=== PATIENT | male | born 1950 | race Caucasian/White ===

== ENCOUNTER → 2017-03-23 | Outpatient (CLI) | payer OTHER | LOC: CIMAGING 09:31 | PROVIDERS: ATTEND Family Medicine | DX: M51.36 Other intervertebral disc degeneration, lumbar region (principal); M89.38 Hypertrophy of bone, other site; Z95.828 Presence of other vascular implants and grafts | CPT/HCPCS: 72100-PO ==

== ENCOUNTER 2017-05-24 09:07 | Day surgery (SDC) | payer OTHER ==
--- NOTE | 2017-05-23 18:02 | GHP ---
[f rep st] PREOP HISTORY AND PHYSICAL DATE OF ADMISSION: 05/24/2017 The patient is a 66-year-old male with known hypertension, type 2 diabetes and coronary artery diseas e, who comes in to see Dr. Masterson to discuss arteriovenous fistula creation for initiation of dialysis . He is right-hand dominant. He is not yet on dialysis. PAST SURGICAL HISTORY: Includes AAA repair in 2012, coronary artery disease stent in 2004, lithotrip sy in the , also abdominal hernia repair, tonsillectomy, right and left arm fracture repairs, pe ricardial stripping and abdominal aneurysm. PAST MEDICAL HISTORY: Includes chronic kidney disease, type 2 diabetes, proteinuria, dyslipidemia, c oronary artery disease, gastroesophageal reflux disease, nephrolithiasis, hypertension, myocardial in farction. FAMILY MEDICAL HISTORY: Includes mother, hypertension and cancer. Father heart disease and diabetes . Sister with diabetes. SOCIAL HISTORY: The patient is a current tobacco smoker he smokes 6-10 cigarettes a day. ALLERGIES: No known drug allergies. MEDICATIONS: Include Levemir, fenofibrate, Nexium, NovoLog, aspirin, lovastatin, glipizide, amlodipi ne, metoprolol, multivitamin, lisinopril, furosemide, vitamin D3. REVIEW OF SYSTEMS: The patient reports no positives. PHYSICAL EXAMINATION: GENERAL: Reveals a 66-year-old male, alert and oriented x3 and in no acute di stress. HEENT: Normocephalic atraumatic. CHEST: Clear to auscultation bilaterally. CARDIAC: Reg ular rate and rhythm. ABDOMEN: Soft nontender. EXTREMITIES: Warm with palpable radial pulses. Ultrasound examination per Dr. Masterson in the office. ASSESSMENT AND PLAN: The patient is a 66-year-old male with multiple comorbidities including renal d isease with plans for dialysis in the near future. PLAN: Plan is to proceed with a left upper extremity arteriovenous fistula creation. Risks and opti ons have been discussed and include, but not limited to bleeding, infection, nerve injury, steal synd mckinley, failure to mature, need for revision and/or alternate access and other problems, and he request s to proceed. /[id number]/MODL
[2017-05-24] MEDS ORDERED: ceFAZolin 2 GM/SWFI 2 GM/20 ML SYR IVP ONE (09:19)
[2017-05-24] MEDS ORDERED: LR 1,000 ML IV ONE (09:21)
[2017-05-24] MEDS ORDERED: LIDOCAINE 1% 2 ML INJ ID PRN (09:21)
[2017-05-24 10:01] LABS: PLATELET COUNT 157 10^3/uL (150-400)
[2017-05-24] MEDS ORDERED: NS 500 ML IV ONE (10:03)
[2017-05-24] MEDS ORDERED: PROTAMINE SULFATE 50 MG/5 ML VIAL IVP ONE (10:30)
[2017-05-24] MEDS ORDERED: THROMBIN (BOVINE) 20,000 UNIT VIAL TP ONE (10:30)
[2017-05-24] MEDS ORDERED: THROMBIN (BOVINE) 5,000 UNIT VIAL TP ONE (10:30)
[2017-05-24] MEDS ORDERED: BUPIVACAINE 0.5% 30 ML SDV ONE (10:30)
[2017-05-24] MEDS ORDERED: PAPAVERINE HCL 60 MG/2 ML SDV ONE (10:31)
[2017-05-24] MEDS ORDERED: MIDAZOLAM 2 MG/2 ML VIAL ONE (10:35)
[2017-05-24] MEDS ORDERED: fentaNYL 100 MCG/2 ML INJ ONE (10:36)
[2017-05-24] MEDS ORDERED: PROPOFOL 200 MG/20 ML VIAL ONE (10:36)
[2017-05-24] MEDS ORDERED: LIDOCAINE 2% 5 ML SDV ONE (10:37)
--- NOTE | 2017-05-24 10:37 | PDHPUP ---
History & Physical Update H&P update statement: This history and physical update is based on an assessment of the patient which was completed after admission or registration (within 24 hours), but prior to the surgery/procedure. H&P update: H&P reviewed & patient examined, no change in patient's condition since H&P completed
[2017-05-24] MEDS ORDERED: MIDAZOLAM 2 MG/2 ML VIAL IVP ONE ×2 (10:42→12:03)
--- NOTE | 2017-05-24 10:44 | PDANEPAE ---
ANE History of Present Illness AV fistula left arm ANE Past Medical History - Cardiovascular History Hx Hypertension: Yes Hx Arrhythmias: No Hx Chest Pain: No Hx Coronary Artery / Peripheral Vascular Disease: Yes Hx CHF / Valvular Disease: No Hx Palpitations: No Cardiovascular History Comment: Trig Rx - Pulmonary History Hx COPD: No Hx Asthma/Reactive Airway Disease: No Hx Recent Upper Respiratory Infection: No Hx Oxygen in Use at Home: No Hx Sleep Apnea: Yes Sleep Apnea Screening Result - Last Documented: Positive Pulmonary History Comment: smoker x 50yrs. APOLINAR- cannot sasha CPAP. 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 hiatal hernia repair. Abdominal aortic aneurysm. coronary stent. tonsillectomy age 9 ANE Review of Systems Review of Systems: - Exercise capacity METS (RN): 4 METS ANE Patient History - Allergies Allergies/Adverse Reactions: No Known Allergies Allergy (Unverified 05/23/17 12:43) - Home Medications Home medications: home medication list seen and reviewed Home Medications: Amlodipine Besylate 05/23/17 [Last Taken 05/24/17 07:30] Aspirin 81mg (*) 05/23/17 [Last Taken 05/23/17] FENOFIBRATE 05/23/17 [Last Taken 05/23/17] Furosemide 05/23/17 [Last Taken 05/23/17] Glipizide 05/23/17 [Last Taken 05/23/17] Levemir Flextouch 05/23/17 [Last Taken 05/23/17] Lisinopril 05/23/17 [Last Taken 05/24/17 07:30] Lovastatin 05/23/17 [Last Taken 05/23/17] Metoprolol Tartrate 05/23/17 [Last Taken 05/24/17 07:30] Nexium 05/23/17 [Last Taken 05/24/17 07:30] novoLOG 05/23/17 [Last Taken 05/23/17] - NPO status NPO Since - Liquids (Date): 05/24/17 NPO Since - Liquids (Time): 07:30 NPO Since - Solids (Date): 05/23/17 NPO Since - Solids (Time): 20:30 - Smoking Hx Smoking Status: Heavy smoker ANE Labs/Vital Signs - Labs Result Diagrams: 05/24/17 09:55 05/24/17 09:55 - Vital Signs Blood Pressure: 168/83 Heart Rate: 86 Respiratory Rate: 16 O2 Sat (%): 97 Height: 182.88 cm Weight: 83.915 kg ANE Physical Exam - Airway Neck exam: FROM Mallampati Score: Class 2 Mouth exam: normal dental/mouth exam - Pulmonary Pulmonary: no respiratory distress - Cardiovascular Cardiovascular: regular rate and rhythym - ASA Status ASA Status: IV ANE Anesthesia Plan Anesthesia Plan: GA w LMA Urgent/Emergent Case: Chelsey sanchez completed preop but documented later for safe timely pt care
[2017-05-24] MEDS ORDERED: PHENYLEPHRINE HCL 100 MCG/ML SYR ONE (10:52)
--- NOTE | 2017-05-24 10:58 | POSTANESTH ---
Post Anesthetic Evaluation Cardiovascular Status: Normal, Stable Respiratory Status: Normal, Stable Level of Consciousness/Mental Status: Can Participate in Eval Pain Control: Adequate, Prn Tx Ordered Nausea/Vomiting Control: Adequate, Prn Tx Ordered Complications Possibly Related to Anesthesia: None Noted
[2017-05-24] MEDS ORDERED: PROMETHAZINE HCL 25 MG/ML INJ IVP PRN (11:36)
[2017-05-24] MEDS ORDERED: ONDANSETRON 4 MG/2 ML VIAL IVP PRN (11:36)
[2017-05-24] MEDS ORDERED: oxyCODONE IR 5 MG TAB PO PRN (11:36)
[2017-05-24] MEDS ORDERED: ONDANSETRON 4 MG/2 ML VIAL ONE (11:36)
[2017-05-24] MEDS ORDERED: NS 500 ML IV PRN (11:36)
[2017-05-24] MEDS ORDERED: ALBUTEROL 3 ML DEYVIAL IH PRN (11:36)
[2017-05-24] MEDS ORDERED: NALOXONE HCL 0.4 MG/ML INJ IVP PRN (11:36)
[2017-05-24] MEDS ORDERED: fentaNYL 100 MCG/2 ML INJ IVP PRN (11:36)
[2017-05-24] MEDS ORDERED: HYDROmorphONE/DILAUDID 1 MG/ML INJ IVP PRN (11:36)
[2017-05-24] MEDS ORDERED: ACETAMINOPHEN 500 MG TAB PO PRN (11:36)
[2017-05-24] MEDS ORDERED: HYDROCODONE/APAP 5/325 TAB PO PRN (11:36)
--- NOTE | 2017-05-24 12:55 | GOP ---
[f rep st] OPERATIVE REPORT DATE OF OPERATION: 05/24/2017 SURGEON: Bishnu Masterson MD TRANSMISSION SUPERINTENDENT: VIVIAN Dick. ANESTHESIOLOGIST: Jean Campbell MD. PREOPERATIVE DIAGNOSIS: Chronic renal failure. POSTOPERATIVE DIAGNOSIS: Chronic renal failure. PROCEDURE PERFORMED: 1. Left arm venous ultrasound vein mapping. 2. Left radiocephalic arteriovenous fistula. FINDINGS: Patient was found to have an adequate radial artery and a good cephalic vein at the wrist, as well as in the upper arm. It was elected to proceed with a radiocephalic AV fistula. ESTIMATED BLOOD LOSS: Negligible. DESCRIPTION OF PROCEDURE: The patient was taken to the operating room. He received satisfactory gen eral endotracheal anesthesia by Dr. Campbell, placed in supine position with the left arm outstretche d on an arm board, prepped and draped in the usual sterile fashion. The veins were mapped with the u ltrasound with the above-noted findings. A longitudinal incision was made over the radial artery. D issection carried down through the fascia and the radial artery was dissected free and controlled wit h vessel loops. The cephalic vein was dissected free underneath the radial flap. It was ligated dis tally with 3-0 silk ties and then rotated over to the radial artery. An end-to-side anastomosis was then made creating an 8 mm anastomosis. Flow was first established through the AV fistula and then b ack down the hand. The patient was systemically heparinized prior to occluding any vessels, and the heparin was reversed with protamine. The wound was instilled with some topical thrombin and closed i n layers with 3-0 Vicryl for the subcu, 4-0 Monocryl subcuticular stitch for the skin. Good palpable thrill was present in the fistula after closure of the wound. The wound was also infiltrated with 0 .5% Marcaine. He tolerated the procedure well and was taken to recovery room in good condition. COMPLICATIONS: No complications. /[id number]/MODL
[2017-05-24 13:22] VITALS: BP 102/72
== END 2017-05-24 13:31 | disposition home or self-care (01) ==
LOC: FSGY 09:07
PROVIDERS: ATTEND Surgery
PROC: 03180ZD Bypass Left Brachial Artery to Upper Arm Vein, Open Approach (ICD-10-PCS; principal; 2017-05-24 10:30)
DX: N18.4 Chronic kidney disease, stage 4 (severe) (principal); I12.9 Hypertensive chronic kidney disease with stage 1 through stage 4 chronic kidney disease, or unspecified chronic kidney disease; E11.22 Type 2 diabetes mellitus with diabetic chronic kidney disease; I25.10 Atherosclerotic heart disease of native coronary artery without angina pectoris; E78.5 Hyperlipidemia, unspecified; K21.9 Gastro-esophageal reflux disease without esophagitis; I25.2 Old myocardial infarction; F17.210 Nicotine dependence, cigarettes, uncomplicated; G47.33 Obstructive sleep apnea (adult) (pediatric); Z87.442 Personal history of urinary calculi; Z95.5 Presence of coronary angioplasty implant and graft; Z83.3 Family history of diabetes mellitus; Z82.49 Family history of ischemic heart disease and other diseases of the circulatory system; Z79.4 Long term (current) use of insulin
CPT/HCPCS: J0690; J1644; J2250; J2370; J2405; J2440; J2704; J2720; J3010

== ENCOUNTER 2017-07-19 06:28 | Day surgery (SDC) | payer OTHER ==
[2017-07-19] MEDS ORDERED: ceFAZolin 2 GM/DEXTROSE 100 ML IV ONE (06:54)
[2017-07-19] MEDS ORDERED: LIDOCAINE 1% 2 ML INJ ID PRN (07:02)
[2017-07-19] MEDS ORDERED: NS 1,000 ML IV ONE (07:02)
[2017-07-19] MEDS ORDERED: THROMBIN (BOVINE) 20,000 UNIT SPRAY TP ONE (07:03)
[2017-07-19] MEDS ORDERED: THROMBIN (BOVINE) 5,000 UNIT VIAL TP ONE (07:03)
[2017-07-19] MEDS ORDERED: PROTAMINE SULFATE 50 MG/5 ML VIAL IVP ONE (07:03)
[2017-07-19] MEDS ORDERED: BUPIVACAINE 0.5% 30 ML SDV ONE (07:03)
[2017-07-19] MEDS ORDERED: PAPAVERINE HCL 60 MG/2 ML SDV ONE (07:03)
--- NOTE | 2017-07-19 07:46 | PDANEPAE ---
ANE History of Present Illness Left ASV revision with ligation ANE Past Medical History - Cardiovascular History Hx Hypertension: Yes Hx Arrhythmias: No Hx Chest Pain: No Hx Coronary Artery / Peripheral Vascular Disease: Yes Hx CHF / Valvular Disease: No Hx Palpitations: No Cardiovascular History Comment: Trig Rx - Pulmonary History Hx COPD: No Hx Asthma/Reactive Airway Disease: No Hx Recent Upper Respiratory Infection: No Hx Oxygen in Use at Home: No Hx Sleep Apnea: Yes Sleep Apnea Screening Result - Last Documented: Positive Pulmonary History Comment: smoker x 50yrs. APOLINAR- cannot sasha CPAP. 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 open heart sx for pericardial stripping;. hiatal hernia repair. Abdominal aortic aneurysm. coronary stent. tonsillectomy age 9 ANE Review of Systems Review of Systems: - Exercise capacity METS (RN): 4 METS - Systems Constitutional: Reports: no symptoms EENMT: Reports: no symptoms ANE Patient History - Allergies Allergies/Adverse Reactions: No Known Allergies Allergy (Unverified 05/23/17 12:43) - Home Medications Home medications: home medication list seen and reviewed Home Medications: Amlodipine Besylate DAILY 05/23/17 [Last Taken 07/19/17 06:00] Aspirin 81mg (*) DAILY 05/23/17 [Last Taken 07/18/17 08:00] FENOFIBRATE HS 05/23/17 [Last Taken 07/18/17 22:00] Furosemide DAILY 05/23/17 [Last Taken 07/18/17 08:00] Glipizide BID 05/23/17 [Last Taken 07/18/17 20:30] Levemir Flextouch HS 05/23/17 [Last Taken 07/18/17 23:00 18] Lisinopril DAILY 05/23/17 [Last Taken 07/19/17 06:00] Lovastatin DAILY 05/23/17 [Last Taken 07/19/17 06:00] Metoprolol Tartrate BID 05/23/17 [Last Taken 07/19/17 06:00] Nexium DAILY 05/23/17 [Last Taken 07/19/17 06:00] novoLOG INJ PRN 05/23/17 [Last Taken 07/18/17 12:00] - NPO status NPO Since - Liquids (Date): 07/18/17 NPO Since - Liquids (Time): 21:00 NPO Since - Solids (Date): 07/18/17 NPO Since - Solids (Time): 21:00 - Anes Hx Anes Hx: no prior problems - Smoking Hx Smoking Status: Heavy smoker Marijuana use: Yes - Alcohol Use Alcohol Use: None - Family Anes Hx Family Anes Hx: none ANE Labs/Vital Signs - Vital Signs Blood Pressure: 149/75 Heart Rate: 70 Respiratory Rate: 16 O2 Sat (%): 96 Height: 182.88 cm Weight: 82.554 kg ANE Physical Exam - Airway Neck exam: decreased ROM Mallampati Score: Class 2 Mouth exam: normal dental/mouth exam - Pulmonary Pulmonary: no respiratory distress, no rales or rhonchi - Cardiovascular Cardiovascular: regular rate and rhythym, no murmur, rub, or gallop - ASA Status ASA Status: III ANE Anesthesia Plan Anesthesia Plan: GA w LMA (Proseal)
[2017-07-19] MEDS ORDERED: MIDAZOLAM 2 MG/2 ML VIAL IVP ONE (07:47)
[2017-07-19] MEDS ORDERED: LIDOCAINE 2% 5 ML SDV ONE (08:09)
[2017-07-19] MEDS ORDERED: PROPOFOL/EMULSION 500 MG/50 ML BOTTLE IV ONE (08:09)
[2017-07-19] MEDS ORDERED: fentaNYL 100 MCG/2 ML INJ ONE (08:09)
[2017-07-19] MEDS ORDERED: ONDANSETRON 4 MG/2 ML VIAL ONE (08:10)
[2017-07-19] MEDS ORDERED: DEXAMETHASONE 4 MG/ML VIAL ONE (08:10)
[2017-07-19] MEDS ORDERED: GLYCOPYRROLATE 0.2 MG/1 ML VIAL ONE (08:10)
[2017-07-19] MEDS ORDERED: PHENYLEPHRINE HCL 100 MCG/ML SYR ONE (09:04)
--- NOTE | 2017-07-19 09:05 | POSTOPPROG ---
Post Op Note Date of Operation: 07/19/17 Surgeon: Bishnu Masterson Audio Visual Secretary: Romana Peters Anesthesiologist: Denise Schmid Anesthesia: LMA Pre-op Diagnosis: CRI, inadequate AVF maturation Post-op Diagnosis: same Procedure: Revision of LUE radiocephalic AVF c ligation of venous collaterals x 3. Findings: 3 collateral veins Inf/Abcess present in the surg proc area at time of surgery?: No EBL: Minimal Complications: none
[2017-07-19] MEDS ORDERED: HYDROCODONE/APAP 5/325 TAB PO PRN (09:19)
[2017-07-19] MEDS ORDERED: ACETAMINOPHEN 500 MG TAB PO PRN (09:19)
[2017-07-19] MEDS ORDERED: NALOXONE HCL 0.4 MG/ML INJ IVP PRN (09:19)
[2017-07-19] MEDS ORDERED: ONDANSETRON 4 MG/2 ML VIAL IVP PRN (09:19)
[2017-07-19] MEDS ORDERED: fentaNYL 100 MCG/2 ML INJ IVP PRN (09:19)
[2017-07-19] MEDS ORDERED: oxyCODONE IR 5 MG TAB PO PRN (09:19)
--- NOTE | 2017-07-19 09:21 | POSTANESTH ---
Post Anesthetic Evaluation Cardiovascular Status: Normal, Stable Respiratory Status: Normal, Stable Level of Consciousness/Mental Status: Can Participate in Eval Pain Control: Adequate, Prn Tx Ordered Nausea/Vomiting Control: Adequate, Prn Tx Ordered Complications Possibly Related to Anesthesia: None Noted (Pt awake. Pt commented that surgery easier than IV placement)
[2017-07-19 10:20] VITALS: BP 130/59
--- NOTE | 2017-07-23 20:43 | GOP ---
[f rep st] OPERATIVE REPORT DATE OF OPERATION: 07/19/2017 SURGEON: Bishnu Masterson MD PREOPERATIVE DIAGNOSIS: Chronic renal failure and arteriovenous fistula with collaterals. POSTOPERATIVE DIAGNOSIS: Chronic renal failure and arteriovenous fistula with collaterals. PROCEDURE PERFORMED: Ultrasound vein mapping of the left arm with revision of the left upper extremi ty radiocephalic arteriovenous fistula with ligation of multiple venous collaterals. FINDINGS: Patient was found to have 3 moderate-size collaterals which were stealing blood away from the main fistula tract. Ligation of these did seem to result in a higher flow rate to the AV fistula . DESCRIPTION OF PROCEDURE: The patient was taken to the operating room where he received satisfactory general endotracheal anesthesia by Dr. Schmid, placed in a supine position with the left arm outstre tched on an arm board, prepped and draped in the usual sterile fashion. The veins of the arm were ev aluated with an ultrasound, and 3 large tributaries were marked. These could also be palpated with a palpable thrill in these collateral veins. Three incisions were made over each of these separate co llaterals, and the veins were dissected free through the subcutaneous tissue and ligated with 3-0 erick k ties. As noted above the flow through the fistula was maintained and, in fact, improved. All 3 in cisions were handled in a similar way. They were infiltrated with 0.5% Marcaine and then closed with 4-0 Monocryl subcuticular sutures. He tolerated the procedure well. He was taken to the recovery r oom in good condition. There were no complications. /[id number]/MODL
== END 2017-07-19 10:20 | disposition home or self-care (01) ==
LOC: FSGY 06:28
PROVIDERS: ATTEND Surgery
PROC: 05LY0ZZ Occlusion of Upper Vein, Open Approach (ICD-10-PCS; principal; 2017-07-19 08:00)
DX: T82.898A Other specified complication of vascular prosthetic devices, implants and grafts, initial encounter (principal); N18.6 End stage renal disease; I12.0 Hypertensive chronic kidney disease with stage 5 chronic kidney disease or end stage renal disease; E11.22 Type 2 diabetes mellitus with diabetic chronic kidney disease; I25.2 Old myocardial infarction; I71.4 Abdominal aortic aneurysm, without rupture; F17.210 Nicotine dependence, cigarettes, uncomplicated; G47.33 Obstructive sleep apnea (adult) (pediatric); K21.9 Gastro-esophageal reflux disease without esophagitis; Z79.4 Long term (current) use of insulin; Z79.82 Long term (current) use of aspirin; Z82.3 Family history of stroke; Z80.42 Family history of malignant neoplasm of prostate; Z83.3 Family history of diabetes mellitus; Z82.49 Family history of ischemic heart disease and other diseases of the circulatory system; Z95.5 Presence of coronary angioplasty implant and graft; Z95.828 Presence of other vascular implants and grafts
CPT/HCPCS: J0690; J1100; J1644; J2250; J2370; J2405; J2440; J2704; J2720; J3010

== ENCOUNTER 2017-10-21 15:00 | Inpatient (IN) | payer OTHER ==
--- NOTE | 2017-10-21 15:23 | EDPHY ---
HPI/HX/ROS/PE/MDM Narrative: CHIEF COMPLAINT: Chest tightness HISTORY OF PRESENT ILLNESS: The patient is a 67 y/o male with a history type 2 diabetes, AAA requiring 3 abdominal stents, CAD, 1 cardiac stent (was on Plavix), hypertension, and chronic kidney disease complaining of chest tightness, onset 2 days ago. On Tuesday he went on a short walk and subsequently developed chest pain associated with uncontrollable shaking in his arms that lasted for 30-45 minutes. Per his son, the patient's blood glucose level was 500 at this time. It is not abnormal for the patient to have shaking in his arms when his BGL spikes. Today at around 2:00, 1.5 hours ago, the patient developed the chest tightness associated with the uncontrollable arm shaking again. However, the pain then radiated to his left ribs, which concerned him. At this time his BGL was 286 and the chest pain was a 4/10. During the most recent episode of chest pain he was short of breath and nauseous, but denies vomiting. Taking a deep breath does not aggravate his symptoms. He currently does not have any symptoms including chest pain or shortness of breath. He denies history of COPD, emphysema or asthma although he is a smoker. He denies changing his medications recently. However, per his family, the patient does not stick to a schedule for administering himself his diabetes medications. No fever, chills, palpitations, vomiting, diarrhea, urinary complaints, headache , lightheadedness, recent cold symptoms. REVIEW OF SYSTEMS: Aside from elements discussed in the HPI, a comprehensive 10 system review of systems was reviewed and is negative. PAST MEDICAL HISTORY: Type 2 diabetes, AAA requiring 3 abdominal stents, CAD, 1 cardiac stent, hypertension, chronic kidney disease SOCIAL HISTORY: Family at bedside, lives in [place], retired, followed by Dr. Martin, smoker VITAL SIGNS: Reviewed by me GENERAL: Well-developed, well-nourished, resting comfortably in no respiratory distress. HEENT: Atraumatic. Eyes: No icterus, no injection. Mouth: dry mucous membranes. No erythema or lesions. Neck: supple with no adenopathy. LUNGS: Mildly diminished breath sounds. Clear to auscultation bilaterally, no wheezes, rhonchi or rales. CARDIAC: Regular rate and rhythm, no rubs, murmurs or gallops. ABDOMEN: Protuberant abdomen. Soft, nontender, nondistended, bowel sounds normal. BACK: No CVA tenderness. EXTREMITIES: No trauma. No edema. Range of motion is normal throughout. NEURO: Alert and oriented, grossly nonfocal. SKIN: Warm and dry, no rash. PSYCHIATRIC: Normal mentation, no agitation. Portions of this note were transcribed by a chief medical technologist. I personally performed a history, physical exam, medical decision making, and confirmed accuracy of information the transcribed note. ED Course: The patient is a 67 y/o male with a history type 2 diabetes, AAA requiring 3 abdominal stents, CAD, 1 cardiac stent (was on Plavix), hypertension, and chronic kidney disease presenting with intermittent chest tightness associated with uncontrollable shaking of his arms, onset 2 days ago. Today he developed the chest tightness again but the pain radiated to his left side. On exam he has dry mucous membranes, diminished breath sounds, and a protuberant abdomen. Labs, EKG, and chest x-ray ordered; 500mL IV NS administered. 1522: 12-LEAD EKG: Please see the full report in [facility]. My interpretation: Sinus rhythm with a rate of 82, RBBB, LAFB, ST depression in V2. I am unable to compare this to an old EKG as this patient is new to [place]. 1538: Patient's POC troponin is 0.06; his chest x-ray reveals no acute findings 1619: Patient's laboratory troponin is 0.078; he will need to be admitted for his symptoms and positive troponin. 324mg PO Aspirin given. 1611: I consulted with the hospitalist service, Dr. Allred accepts admission of this patient. 1615: Reassessed patient and discussed laboratory and EKG findings. I have discussed the plan for admission, which he is comfortable with. 1637: I consulted with Dr. Gallardo, software qa system specialist, regarding this patient. He agrees to consult on this patient during his admission. MDM: After history and physical examination, the differential for chest pain was considered, including but not limited to, myocardial ischemia, acute coronary syndrome, pulmonary embolus, chest wall pain, pleural inflammation and pulmonary infectious causes. - Data Points Imaging Results: Imaging Impressions Chest X-Ray 10/21/17 15:37 Impression: No acute findings in the chest. Imaging: I viewed and interpreted images myself Laboratory Results: Laboratory Results 10/21/17 15:15 10/21/17 15:15 10/21/17 10/21/17 10/21/17 15:50 15:24 15:15 WBC RBC Hgb Hct MCV MCH MCHC RDW Plt Count MPV Neut % (Auto) Lymph % (Auto) [place] % (Auto) Eos % (Auto) Baso % (Auto) Nucleat RBC Rel Count Absolute Neuts (auto) Absolute Lymphs (auto) Absolute Monos (auto) Absolute Eos (auto) Absolute Basos (auto) Absolute Nucleated RBC Immature Gran % Immature Gran # Sodium 137 mEq/L mEq/L (135-145) Potassium 4.4 mEq/L mEq/L (3.3-5.0) Chloride 101 mEq/L mEq/L (97-110) Carbon Dioxide 25 mEq/l mEq/l (22-31) Anion Gap 11 mEq/L mEq/L (8-16) BUN 45 mg/dL H mg/dL (7-23) Creatinine 2.7 mg/dL H mg/dL (0.7-1.3) Estimated GFR 24 Glucose 246 mg/dL H mg/dL (70-100) Calcium 9.5 mg/dL mg/dL (8.5-10.4) Creatine Kinase 46 IU/L IU/L (0-224) CK-MB (CK-2) Fraction 1.43 ng/mL ng/mL (0.00-4.55) POC Troponin I 0.06 ng/mL ng/mL (0.00-0.08) Troponin I 0.078 ng/mL H ng/mL (0.000-0.034) Lipase 107 IU/L IU/L (23-300) Urine Color YELLOW Urine Appearance CLEAR Urine pH 5.0 (5.0-7.5) Ur Specific [place] 1.014 (1.002-1.030) Urine Protein 3+ H (NEGATIVE) Urine Ketones NEGATIVE (NEGATIVE) Urine Blood 1+ H (NEGATIVE) Urine Nitrate NEGATIVE (NEGATIVE) Urine Bilirubin NEGATIVE (NEGATIVE) Urine Urobilinogen NEGATIVE EU EU (0.2-1.0) Ur Leukocyte Esterase NEGATIVE (NEGATIVE) Urine RBC 1-3 /hpf /hpf (0-3) Urine WBC 1-3 /hpf /hpf (0-3) Ur Epithelial Cells NONE SEEN /lpf /lpf (NONE-1+) Urine Glucose 3+ H (NEGATIVE) 10/21/17 15:15 WBC 11.33 10^3/uL H 10^3/uL (3.80-9.50) RBC 5.16 10^6/uL 10^6/uL (4.40-6.38) Hgb 16.0 g/dL g/dL (13.7-17.5) Hct 46.5 % % (40.0-51.0) MCV 90.1 fL fL (81.5-99.8) MCH 31.0 pg pg (27.9-34.1) MCHC 34.4 g/dL g/dL (32.4-36.7) RDW 13.2 % % (11.5-15.2) Plt Count 147 10^3/uL L 10^3/uL (150-400) MPV 12.4 fL H fL (8.7-11.7) Neut % (Auto) 69.1 % % (39.3-74.2) Lymph % (Auto) 17.6 % % (15.0-45.0) [place] % (Auto) 8.4 % % (4.5-13.0) Eos % (Auto) 3.3 % % (0.6-7.6) Baso % (Auto) 0.6 % % (0.3-1.7) Nucleat RBC Rel Count 0.0 % % (0.0-0.2) Absolute Neuts (auto) 7.84 10^3/uL H 10^3/uL (1.70-6.50) Absolute Lymphs (auto) 1.99 10^3/uL 10^3/uL (1.00-3.00) Absolute Monos (auto) 0.95 10^3/uL H 10^3/uL (0.30-0.80) Absolute Eos (auto) 0.37 10^3/uL 10^3/uL (0.03-0.40) Absolute Basos (auto) 0.07 10^3/uL 10^3/uL (0.02-0.10) Absolute Nucleated RBC 0.00 10^3/uL 10^3/uL (0-0.01) Immature Gran % 1.0 % % (0.0-1.1) Immature Gran # 0.11 10^3/uL H 10^3/uL (0.00-0.10) Sodium Potassium Chloride Carbon Dioxide Anion Gap BUN Creatinine Estimated GFR Glucose Calcium Creatine Kinase CK-MB (CK-2) Fraction POC Troponin I Troponin I Lipase Urine Color Urine Appearance Urine pH Ur Specific [place] Urine Protein Urine Ketones Urine Blood Urine Nitrate Urine Bilirubin Urine Urobilinogen Ur Leukocyte Esterase Urine RBC Urine WBC Ur Epithelial Cells Urine Glucose Medications Given: Discontinued Medications Aspirin (Aspirin) 324 mg PO EDNOW ONE Stop: 10/21/17 16:14 Last Admin: 10/21/17 16:17 Dose: 324 mg Sodium Chloride (Ns) 500 mls @ 1,000 mls/hr IV EDNOW ONE PRN Reason: Protocol Stop: 10/21/17 16:31 Last Admin: 10/21/17 16:17 Dose: 500 mls Point of Care Test Results: Chemistry 10/21/17 15:24 POC Troponin I 0.06 ng/mL ng/mL (0.00-0.08) General Time Seen by Provider: 10/21/17 15:19 Initial Vital Signs: Initial Vital Signs Temperature (C) 36.7 C 10/21/17 15:07 Heart Rate 90 10/21/17 15:07 Respiratory Rate 16 10/21/17 15:07 Blood Pressure 157/93 H 10/21/17 15:07 O2 Sat (%) 97 10/21/17 15:07 O2 Delivery Mode Room Air O2 (L/minute) 2 Allergies/Adverse Reactions: No Known Allergies Allergy (Unverified 10/21/17 15:05) Home Medications: Medication Instructions Recorded Aspirin [Aspirin 81mg (*)] 81 mg PO DAILY 10/21/17 Cholecalciferol Vit D3 [Vitamin D3 2,000 units PO DAILY 10/21/17 2000 units tab (OTC)] Esomeprazole Magnesium [Nexium] 20 mg PO DAILY 10/21/17 Fenofibrate 54 mg PO HS 10/21/17 Insulin Aspart [novoLOG] 4 - 10 units SQ TIDMEAL 10/21/17 Insulin Detemir [Levemir Flextouch] 28 unit SQ HS 10/21/17 Metoprolol Tartrate [Lopressor 25 12.5 mg PO BID 10/21/17 mg (*)] amLODIPine BESYLATE [Amlodipine 10 mg PO DAILY 10/21/17 Besylate] glipiZIDE [Glipizide] 10 mg PO BID 10/21/17 Atorvastatin Calcium [Lipitor 40 80 mg PO DAILY #60 tab 10/25/17 mg (*)] Clopidogrel Bisulfate [Plavix (*)] 75 mg PO DAILY #30 tab 10/25/17 Departure - Departure Disposition: [facility] Acute Clinical Impression: Elevated troponin Condition: Fair Report Scribed for: Marge Lopez Report Scribed by: Bhavna Church Date of Report: 10/21/17 Time of Report: 15:21
[2017-10-21 15:44] LABS: PLATELET COUNT 147 10^3/uL (150-400)
[2017-10-21 15:54] LABS: CREATINE KINASE 46 IU/L (0-224)
[2017-10-21] MEDS ORDERED: NS 500 ML IV ONE (16:02)
[2017-10-21] MEDS ORDERED: ASPIRIN 81 MG CHEWABLE TAB PO ONE (16:13)
--- NOTE | 2017-10-21 17:02 | ECHO ---
[email or web address] [address] [address] Main: [phone] Fax: Transthoracic Echocardiogram Name: TANIA THOMAS MR#: [id number] Study Date: 10/21/2017 Study Time: 04:35 PM Date of : 1950 Age: 67 year(s) Height: 180.3 cm (71 in.) Weight: 84.37 kg (186 lb.) BSA: 2.04 m2 Gender: Male Examination: Echo Indication: Chest Pain, Elevated Troponin, Hx of Pericardial stripping, stents, Diabetes Image Quality: Contrast: Requested by: Nabil Allred BP: 152 mmHg/88 mmHg Heart Rate: Rhythm: Normal sinus rhythm Indication: Chest Pain, Elevated Troponin, Hx of Pericardial stripping, stents, Diabetes Procedure Staff Mold Runner: Keny Pedraza RDCS Reading Physician: Will Ann MD Requesting Provider: Conclusions: No pericardial effusion. Preserved left ventricular systolic function. No regional wall motion abnormalities. Ejection fraction 65%. No significant valvular abnormalities by Doppler 2 dimensional study. Measurements: Chambers Valvular Assessment AV/MV Valvular Assessment TV/PV Normal Normal Normal Name Value Range Name Value Range Name Value Range Ao Sherrie (MM): 3.6 cm (2.2 cm-3.7 AV Vmax: 1.28 m/s (1 m/s-1.7 PV Vmax: 0.73 m/s (0.6 m/s-0.9 cm) m/s) m/s) IVSd (2D): 1.0 cm (0.6 cm-1.1 AV maxP mmHg ( - ) PV PGmax: 2 mmHg ( - ) cm) LVOT Vmax: 0.72 m/s (0.7 m/s-1.1 LVDd (2D): 4.1 cm (4.2 cm-5.9 m/s) cm) MV E Vmax: 0.79 m/s ( - ) LVDs (2D): 2.7 cm (2.1 cm-4 MV A Vmax: 0.96 m/s ( - ) cm) MV E/A: 0.82 ( - ) LVPWd (2D): 1.0 cm (0.6 cm-1 cm) LVEF (2D): 65 (>=54 %) Continued Measurements: Chambers Valvular Assessment AV/MV Name Value Name Value LADs Lon.7 cm MV E/E' Septal: 18.90 LA Area: 14.6 cm2 MV E/E' Lateral: 9.50 LA Volume: 41 ml LA Volume Index: 20.1 ml/m2 Patient: TANIA THOMAS Study Date: 10/21/2017 Page 1 of 2 04:35 PM Findings: Left Ventricle: Normal size left ventricle. No LV hypertrophy. Normal global systolic LV function. EF is 65 %. No regional wall motion abnormality. Diastolic dysfunction is present. . Right Ventricle: Normal size right ventricle. Normal RV function. Left Atrium: The left atrium is normal in size. Right Atrium: The right atrium is normal in size. Mitral Valve: The mitral valve is normal in appearance and function. Trivial mitral valve regurgitation. Aortic Valve: The aortic valve is tri-leaflet and functions normally. No aortic valve stenosis is present. Tricuspid Valve: The tricuspid valve is normal in appearance and function. Pulmonic Valve: The pulmonic valve is normal in appearance and function. Aorta: The aorta is normal. Pericardium: No pericardial effusion. (No Signature Object) Patient: TANIA THOMAS Study Date: 10/21/2017 Page 2 of 2 04:35 PM [id number]
[2017-10-21] MEDS ORDERED: D50W 25 GM/50 ML VIAL IVP PRN (18:36)
[2017-10-21] MEDS ORDERED: ACETAMINOPHEN 325 MG TAB PO PRN (18:40)
[2017-10-21] MEDS ORDERED: ONDANSETRON DISINTEGRATING 4 MG TAB PO PRN (18:40)
[2017-10-21] MEDS ORDERED: ONDANSETRON 4 MG/2 ML VIAL IVP PRN (18:40)
--- NOTE | 2017-10-21 18:45 | PDGENHP ---
History and Physical - Chief Complaint chest pain - History of Present Illness The patient is a 67 y/o male with a history type 2 diabetes, AAA requiring 3 abdominal stents, CAD, 1 cardiac stent (was on Plavix), hypertension, and chronic kidney disease complaining of chest tightness, onset 2 days ago. On Tuesday he went on a short walk and subsequently developed chest pain associated with uncontrollable shaking in his arms that lasted for 30-45 minutes. Today at around 2:00, 1.5 hours ago, the patient developed the chest tightness associated with the uncontrollable arm shaking again. However, the pain then radiated to his left ribs, which concerned him. At this time his BGL was 286 and the chest pain was a 4/10. Taking a deep breath does not aggravate his symptoms. He currently does not have any symptoms including chest pain or shortness of breath. He denies history of COPD, emphysema or asthma although he is a smoker. He is currently not having any chest pain. He has a hx of chronic renal insufficiency stage IV and recently had a AV fistula placed. He has not started dialysis. He is urinating well. Electrolytes are ok. Cr is elevated but appears within his baseline. He denies any current cp , palpitations or leg swelling. 1 of 2 trop was mildly elevated. No fever, chills, palpitations, vomiting, diarrhea, urinary complaints, headache , lightheadedness, recent cold symptoms. PAST MEDICAL HISTORY: Type 2 diabetes, AAA requiring 3 abdominal stents, CAD, 1 cardiac stent, hypertension, chronic kidney disease SOCIAL HISTORY: Family at bedside, lives in [place], retired, followed by Dr. Martin, smoker FmHx: non contributory History Information - Allergies/Home Medication List Allergies/Adverse Reactions: No Known Allergies Allergy (Unverified 10/21/17 15:05) Home Medications: Amlodipine Besylate DAILY 05/23/17 [Last Taken 07/19/17 06:00] Aspirin 81mg (*) DAILY 05/23/17 [Last Taken 07/18/17 08:00] FENOFIBRATE HS 05/23/17 [Last Taken 07/18/17 22:00] Furosemide DAILY 05/23/17 [Last Taken 07/18/17 08:00] Glipizide BID 05/23/17 [Last Taken 07/18/17 20:30] Levemir Flextouch HS 05/23/17 [Last Taken 07/18/17 23:00 18] Lisinopril DAILY 05/23/17 [Last Taken 07/19/17 06:00] Lovastatin DAILY 05/23/17 [Last Taken 07/19/17 06:00] Metoprolol Tartrate BID 05/23/17 [Last Taken 07/19/17 06:00] Nexium DAILY 05/23/17 [Last Taken 07/19/17 06:00] novoLOG INJ PRN 05/23/17 [Last Taken 07/18/17 12:00] Vitamin D3 10/21/17 [Last Taken Unknown] I have personally reviewed and updated: medical history, social history - Social History Smoking Status: Current every day smoker Review of Systems Review of Systems: ROS: 10pt was reviewed & negative except for what was stated in HPI & below Physical Exam Physical Exam: Temp Pulse Resp BP Pulse Ox 36.7 C 90 16 164/95 H 99 10/21/17 17:52 10/21/17 17:52 10/21/17 17:52 10/21/17 17:52 10/21/17 17:52 O2 (L/minute) 2 Constitutional: no apparent distress, appears nourished Eyes: PERRL Ears, Nose, Mouth, Throat: moist mucous membranes Cardiovascular: regular rate and rhythym, No edema Respiratory: no respiratory distress, no rales or rhonchi, reduced air movement Gastrointestinal: normoactive bowel sounds Skin: warm Musculoskeletal: full muscle strength Neurologic: AAOx3 Psychiatric: interacting appropriately, not anxious, not encephalopathic Lymph, Heme, Immunologic: No petechiae Lab Data & Imaging Review 10/21/17 15:15 10/21/17 15:15 WBC 11.33 10^3/uL (3.80-9.50) H 10/21/17 15:15 RBC 5.16 10^6/uL (4.40-6.38) 10/21/17 15:15 Hgb 16.0 g/dL (13.7-17.5) 10/21/17 15:15 Hct 46.5 % (40.0-51.0) 10/21/17 15:15 MCV 90.1 fL (81.5-99.8) 10/21/17 15:15 MCH 31.0 pg (27.9-34.1) 10/21/17 15:15 MCHC 34.4 g/dL (32.4-36.7) 10/21/17 15:15 RDW 13.2 % (11.5-15.2) 10/21/17 15:15 Plt Count 147 10^3/uL (150-400) L 10/21/17 15:15 MPV 12.4 fL (8.7-11.7) H 10/21/17 15:15 Neut % (Auto) 69.1 % (39.3-74.2) 10/21/17 15:15 Lymph % (Auto) 17.6 % (15.0-45.0) 10/21/17 15:15 [place] % (Auto) 8.4 % (4.5-13.0) 10/21/17 15:15 Eos % (Auto) 3.3 % (0.6-7.6) 10/21/17 15:15 Baso % (Auto) 0.6 % (0.3-1.7) 10/21/17 15:15 Nucleat RBC Rel Count 0.0 % (0.0-0.2) 10/21/17 15:15 Absolute Neuts (auto) 7.84 10^3/uL (1.70-6.50) H 10/21/17 15:15 Absolute Lymphs (auto) 1.99 10^3/uL (1.00-3.00) 10/21/17 15:15 Absolute Monos (auto) 0.95 10^3/uL (0.30-0.80) H 10/21/17 15:15 Absolute Eos (auto) 0.37 10^3/uL (0.03-0.40) 10/21/17 15:15 Absolute Basos (auto) 0.07 10^3/uL (0.02-0.10) 10/21/17 15:15 Absolute Nucleated RBC 0.00 10^3/uL (0-0.01) 10/21/17 15:15 Immature Gran % 1.0 % (0.0-1.1) 10/21/17 15:15 Immature Gran # 0.11 10^3/uL (0.00-0.10) H 10/21/17 15:15 Sodium 137 mEq/L (135-145) 10/21/17 15:15 Potassium 4.4 mEq/L (3.3-5.0) 10/21/17 15:15 Chloride 101 mEq/L (97-110) 10/21/17 15:15 Carbon Dioxide 25 mEq/l (22-31) 10/21/17 15:15 Anion Gap 11 mEq/L (8-16) 10/21/17 15:15 BUN 45 mg/dL (7-23) H 10/21/17 15:15 Creatinine 2.7 mg/dL (0.7-1.3) H 10/21/17 15:15 Estimated GFR 24 10/21/17 15:15 Glucose 246 mg/dL (70-100) H 10/21/17 15:15 POC Glucose 170 mg/dL (70-100) H 10/21/17 18:14 Calcium 9.5 mg/dL (8.5-10.4) 10/21/17 15:15 Creatine Kinase 46 IU/L (0-224) 10/21/17 15:15 CK-MB (CK-2) Fraction 1.43 ng/mL (0.00-4.55) 10/21/17 15:15 POC Troponin I 0.06 ng/mL (0.00-0.08) 10/21/17 15:24 Troponin I 0.078 ng/mL (0.000-0.034) H 10/21/17 15:15 Lipase 107 IU/L (23-300) 10/21/17 15:15 Urine Color YELLOW 10/21/17 15:50 Urine Appearance CLEAR 10/21/17 15:50 Urine pH 5.0 (5.0-7.5) 10/21/17 15:50 Ur Specific [place] 1.014 (1.002-1.030) 10/21/17 15:50 Urine Protein 3+ (NEGATIVE) H 10/21/17 15:50 Urine Ketones NEGATIVE (NEGATIVE) 10/21/17 15:50 Urine Blood 1+ (NEGATIVE) H 10/21/17 15:50 Urine Nitrate NEGATIVE (NEGATIVE) 10/21/17 15:50 Urine Bilirubin NEGATIVE (NEGATIVE) 10/21/17 15:50 Urine Urobilinogen NEGATIVE EU (0.2-1.0) 10/21/17 15:50 Ur Leukocyte Esterase NEGATIVE (NEGATIVE) 10/21/17 15:50 Urine RBC 1-3 /hpf (0-3) 10/21/17 15:50 Urine WBC 1-3 /hpf (0-3) 10/21/17 15:50 Ur Epithelial Cells NONE SEEN /lpf (NONE-1+) 10/21/17 15:50 Urine Glucose 3+ (NEGATIVE) H 10/21/17 15:50 Assessment & Plan Assessment: #Chest pain -I ordered a TTE which is essentially unremarkable -one trop was mildly elevated, in a pt with significant renal impairment -cards has been consulted #Chronic renal insufficiency, stage IV -appears at baseline #Hx of CAD #IDDM -ISS -A1C -home insulin #Tobacco abuse d/o -nicotine replacement Plan: Admit observation The etiology of his chest pain in unclear. He has several risk factors and previous hx. He may have underlying angina. His troponin is not very remarkable given his advance renal disease and his echo is reassuring Cards was consulted by the ER. I will make NPO at midnight in case a procedure is recommended by Cards. I have not ordered stress testing. He has taken an Aspirin already Tele, serial trop He is a smoker and I will do a trial of bronchodilator to see if this helps Check A1C, optimize glucose mgmt check lipid panel His home meds have not been reconciled as a list is not yet available SCD's full code
[2017-10-21] MEDS: ALBUTEROL 3 ML DEYVIAL IH SCH ×2 (19:43→19:51)
[2017-10-21] MEDS: NICOTINE 21 MG/24 HR PATCH TD SCH (21:22)
[2017-10-21] MEDS: FUROSEMIDE 20 MG TAB PO SCH (22:25)
[2017-10-21] MEDS: METOPROLOL TARTRATE 25 MG TAB PO SCH (22:25)
--- NOTE | 2017-10-22 | CPEKG ---
Test Reason : OPEN Blood Pressure : / mmHG Vent. Rate : 082 BPM Atrial Rate : 084 BPM P-R Int : 140 ms QRS Dur : 136 ms QT Int : 411 ms P-R-T Axes : 068 -55 065 degrees QTc Int : 480 ms Sinus rhythm RBBB and LAFB Confirmed by Marge Lopez ([id number]) on 10/21/2017 11:59:57 PM Referred By: Confirmed By:Marge Lopez
[2017-10-22 04:12] LABS: PLATELET COUNT 122 10^3/uL (150-400)
[2017-10-22] MEDS: ALBUTEROL 3 ML DEYVIAL IH SCH ×4 (05:40→21:20)
[2017-10-22] MEDS ORDERED: glipiZIDE 10 MG TAB PO SCH (07:30)
[2017-10-22] MEDS: INSULIN LISPRO 100 UNIT/ML SC SCH ×3 (07:57→17:27)
[2017-10-22] MEDS: ASPIRIN 81 MG CHEWABLE TAB PO SCH (08:09)
[2017-10-22] MEDS: CHOLECALCIFEROL VIT D3 2,000 UNITS TAB/CAP PO SCH (08:10)
[2017-10-22] MEDS: LISINOPRIL 40 MG TAB PO SCH (08:10)
[2017-10-22] MEDS: PANTOPRAZOLE SODIUM 40 MG TAB PO SCH (08:10)
[2017-10-22] MEDS: FUROSEMIDE 20 MG TAB PO SCH ×2 (08:10→21:35)
[2017-10-22] MEDS: PRAVASTATIN SODIUM 20 MG TAB PO SCH (08:10)
[2017-10-22] MEDS: METOPROLOL TARTRATE 25 MG TAB PO SCH ×2 (08:11→21:35)
[2017-10-22] MEDS: NICOTINE 21 MG/24 HR PATCH TD SCH (08:11)
[2017-10-22] MEDS ORDERED: PROTOCOL MAGNESIUM 1 DOSE IV PRN (09:07)
[2017-10-22] MEDS ORDERED: MAGNESIUM SULF 2 GM/WATER 50 ML IV ONE ×2 (09:33→10:00)
--- NOTE | 2017-10-22 09:36 | GHP ---
DATE OF ADMISSION: 10/21/2017 CHIEF COMPLAINT: Chest discomfort, known history of coronary disease, and peripheral vascular diseas e. HPI: This is a very pleasant 67-year-old gentleman, who has extensive cardiac history. 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 He has a history of cigarette smoking, diabetes mellitus. In 2003, he had a stent placed in an unknown vessel in [place]. He had no symptoms prior to this. He apparently was doing well until 2013, when he started to have claudication, abdominal pain, and ended up with 3 jennifer nts and a AAA at that time. He had his last stress test and cardiac evaluation over 1 year ago, done in [place]. He has moved to the [facility] over the last year. He subsequently has been followed by [facility] for chronic renal insufficiency. He has had a recent AV fistula placed for an ticipated dialysis. He continues to smoke 5 cigarettes a day. Over the last 4 or 5 days, he has had some issues of he will go for a walk, come back, and then while at rest have some chest heaviness wi th arm shaking. This can last minutes to half an hour. It is not associated with exercise. There i s no nausea, vomiting, or diaphoresis. Yesterday, he came to the emergency room after 1 of these epi sodes. His EKG showed normal sinus rhythm with a left anterior hemiblock and a right bundle branch b lock. There were no acute changes. Of note, he does not have old EKGs for comparison. Echocardiogr am showed normal LV function without ischemic wall motion abnormality. His blood glucose was elevate d to 280 at that time. He denies any fever, chills, nausea, vomiting, or other issues. His troponin s are at 0.7, 0.8. Overnight, he has been stable without arrhythmias. This morning, he is comfortab le without chest pain or palpitations. He has had no other episodes. He denies any new medicines or other issues. PAST MEDICAL HISTORY: Diabetes mellitus, peripheral vascular disease, cardiovascular disease, perica rdial stripping, chronic renal insufficiency with anticipation of dialysis. SOCIAL HISTORY: He lives in [place]. He has not had a basting cleaner in the [place] area. REVIEW OF SYSTEMS: Otherwise 10 point is negative, except for HPI. EXAM: VITALS: Blood pressure is 156/84. GENERAL: A middle-aged male in no acute distress. HEENT: Mouth, oropharynx was moist. LUNGS: Clear. BACK: CV and chest wall without palpable tenderness. Well-healed midline scar. CARDIOVASCULAR: Regular rate and rhythm without murmur, gallops, rubs. No JVP or HJR. ABDOMEN: Soft, nontender. MUSCULOSKELETAL: Showed palpable pulses in the feet and in his radial. OUTPATIENT MEDICATIONS: See reconciliation sheet, but includes beta blockers, SKYLA inhibitors, insuli n, calcium blockers, and aspirin. LABS: White count 10, platelets 122, creatinine 2.5, potassium 4.1, troponin 0.07, 0.08. Cholestero l 205, with LDL 119. ASSESSMENT: 1. Somewhat atypical chest pain in a patient with known coronary vascular disease and peripheral vas cular disease. This has occurred on 3 or 4 occasions at rest. Enzymes are indeterminate, may be inf luenced by renal insufficiency. His EKG shows a right bundle branch block without acute changes. No old EKGs to compare. Echocardiogram showed no regional wall motion abnormality. Patient has been a symptomatic overnight. At this time, I discussed our options. He has agreed to a nuclear stress jim t prior to discharge. He understands the added risks that would be of renal insufficiency if cardiac catheterization is necessary. At this point, there is no clear GI or pneumonia or other process to account for his chest pain. 2. Cigarette smoking. Continues to smoke 5 cigarettes a day. 3. Chronic renal insufficiency. Patient has been followed by [facility] and has an AV fistu la placed for anticipated future dialysis. If the patient were to need catheterization, clearly a co nsult should be obtained for their input prior to any contrast dye load. 4. History of constrictive pericarditis with pericardial stripping in 1984. 5. History of peripheral vascular disease, status post abdominal aneurysm stenting 2013. PLAN: Further care depending on the results of his nuclear stress test. The patient's questions ilia kamara answered. He agrees with this workup. /[id number]/MODL
[2017-10-22] MEDS ORDERED: 1/2 NS 1,000 ML IV SCH (10:00)
[2017-10-22] MEDS ORDERED: REGADENOSON 0.4 MG/5 ML SYR IVP ONE (10:27)
--- NOTE | 2017-10-22 10:57 | CPR ---
DATE OF PROCEDURE: 10/22/2017 PROCEDURE: Lexiscan nuclear stress test. INDICATION: The patient is a 67-year-old male with a history of coronary artery disease, pericardial stripping and aortic aneurysm repair, who presented to the hospital with chest pressure. He was wal adis into his house when he developed chest pressure lasting for approximately 15 minutes. He had 3 episodes over the last few days and therefore presented to the hospital. PROCEDURE IN DETAIL: Consent was obtained. The patient was placed on continuous telemetry. His res ting EKG reveals normal sinus rhythm with a right bundle branch block and left anterior fascicular bl ock. The patient was infused with Lexiscan and complained of shortness of breath and flushing. He r emained in normal sinus rhythm without any ST-T wave changes. His blood pressure at rest was 139/80, and remained stable throughout the procedure. PLAN: Await nuclear images. /[id number]/MODL
--- NOTE | 2017-10-22 16:53 | ASMTCMCOM ---
CM Note CM Note Notes: Pt in for chest discomfort, diabetes, elevated troponin. Pt with numerous comorbidiities including CKD anticipating dialysis Pt has family bedside. No therapies ordered. D/c plan of care: TBD Date Signed: 10/22/2017 04:52 PM Electronically Signed By:CHAIM Andres
--- NOTE | 2017-10-22 16:56 | HOSPPROG ---
Hospitalist Progress Note Assessment/Plan: Subjective Follow-up on chest pain. The patient has children were present at the bedside today and stated they have observed him having episodes of chills and shaking of his upper extremities primarily. His case was reviewed as well with Cardiology and further stress testing is being performed. Otherwise no acute events overnight. Objective Vital signs as detailed below Exam General-patient appears comfortable he is awake alert conversant no acute distress sitting in chair at the bedside Heart-regular no murmurs appreciated Lungs-Clear to auscultation with normal respiratory effort Abdomen-soft nontender nondistended -no Mcclure catheter in place Extremities-no significant pitting edema or calf pain with palpation Labs as detailed below Assessment and plan Chest pain-troponins are just mildly elevated with no significant escalation in the setting of a patient with chronic kidney disease. Further recommendations and workup per Cardiology. Appreciate their input on this case. Hypomagnesemia-replaced. Coronary artery disease-history of PCI or x1 stent previously he has also had stenting of his abdominal aorta secondary to abdominal aortic aneurysm. At continue current aspirin and pravastatin. Hypertension-continue with current amlodipine Lasix lisinopril and metoprolol. Chronic kidney disease stage 4-patient recently had AV fistula placed in anticipation of hemodialysis in the future. Diabetes mellitus type 2-continue insulin detemir with sliding scale insulin prior to meals. Tobacco use-cessation advised. DVT prophylaxis-lower risk as ambulatory. Disposition-pending further cardiac evaluation. Objective: Vital Signs Temp Pulse Resp BP Pulse Ox 36.7 C 92 17 120/64 96 10/22/17 15:46 10/22/17 15:46 10/22/17 15:46 10/22/17 15:46 10/22/17 15:46 Laboratory Results 10/22/17 03:13 10/22/17 03:13 10/21/17 10/22/17 10/23/17 05:59 05:59 05:59 Intake Total 700 964 Output Total 1600 460 Balance -900 504 ICD10 Worksheet Patient Problems: Problems Problem Status Onset Chest pain Acute Elevated troponin Acute
[2017-10-22] MEDS: FENOFIBRATE 48 MG TAB PO SCH (21:35)
[2017-10-23 04:15] LABS: PLATELET COUNT 128 10^3/uL (150-400)
[2017-10-23] MEDS: ALBUTEROL 3 ML DEYVIAL IH SCH ×4 (06:02→23:19)
[2017-10-23] MEDS ORDERED: MAGNESIUM SULF 1 GM/DEXTROSE 100 ML IV ONE (08:05)
[2017-10-23] MEDS: INSULIN LISPRO 100 UNIT/ML SC SCH ×3 (08:29→17:48)
[2017-10-23] MEDS: LISINOPRIL 40 MG TAB PO SCH (08:34)
[2017-10-23] MEDS: PRAVASTATIN SODIUM 20 MG TAB PO SCH (08:34)
[2017-10-23] MEDS: METOPROLOL TARTRATE 25 MG TAB PO SCH ×2 (08:34→21:26)
[2017-10-23] MEDS: FUROSEMIDE 20 MG TAB PO SCH (08:34)
[2017-10-23] MEDS: ASPIRIN 81 MG CHEWABLE TAB PO SCH (08:34)
[2017-10-23] MEDS: CHOLECALCIFEROL VIT D3 2,000 UNITS TAB/CAP PO SCH (08:34)
[2017-10-23] MEDS: NICOTINE 21 MG/24 HR PATCH TD SCH (08:35)
[2017-10-23] MEDS: PANTOPRAZOLE SODIUM 40 MG TAB PO SCH (08:35)
--- NOTE | 2017-10-23 08:44 | SOAPPROG ---
TIMMY Progress Note Assessment/Plan: Assessment:1.cad...h/o stenting 2005..now with cp and shaking arms..unclear etiology..pt has agreed to cardiac cath and will have renal see today to outline fluid protection issues 2. AAA h/o stenting 2013 3.cri..creat 2.[address] and maturing..known to [facility] Plan:1. cath 10/24 unless pt becomes unstable today 10/23/17 08:54 Subjective: pt doing well except he had one episode of cp and shaking arms without ekg changes or hemodynamic compromise..c/w ms....pt to have rest sstudy nuclear today...b/c of episode i recommend cardiac cath risks were rediscussed and will have renal see today for rre cath renal protection issues Objective: Vital Signs Temp Pulse Resp BP Pulse Ox 36.8 C 78 18 143/76 H 93 10/23/17 07:10 10/23/17 07:10 10/23/17 07:10 10/23/17 07:10 10/23/17 07:10 Laboratory Results 10/23/17 03:16 10/23/17 03:16 10/22/17 10/23/17 10/24/17 05:59 05:59 05:59 Intake Total 700 1114 Output Total 1600 1210 Balance -900 -96 Physical Exam - Physical Exam Respiratory: lungs clear Cardiac/Chest: normal peripheral pulses, No edema, No gallop ICD10 Worksheet Patient Problems: Problems Problem Status Onset Chest pain Acute Elevated troponin Acute
[2017-10-23] MEDS ORDERED: NITROGLYCERIN 0.4 MG BTL SL PRN (09:02)
[2017-10-23] MEDS ORDERED: TEMAZEPAM 15 MG CAP PO PRN (09:02)
[2017-10-23] MEDS ORDERED: ACETAMINOPHEN 325 MG TAB PO PRN (09:02)
--- NOTE | 2017-10-23 09:33 | SOAPPROG ---
SOAP Progress Note Assessment/Plan: Assessment: #CKD4 -followed by Dr. Holcomb of our group. Cr at his baseline. -s/p AVF L phil placement by Dr. Masterson in late May with subsequent coiling of collaterals-- looks mature to use if needed (no HD needs currently) -reviewed contrast risk in detail and chance he may need HD post procedure-- he agrees to proceed. Would start IVF at midnight and continue post procedure. I will hold his lisinopril and lasix as well. I discussed with Dr. Huddleston -will need labs checked 72 hours post procedure as well if d/c before then to see Cr trend #Chest pain -prior stent , now with recurrent episodes of CP and cardiology planning on cath tomorrow #AAA #DM2 #HTN #anemia CKD -Hb at goal, not on Epo #MBD of CKD -check phos with am labs I discussed with Dr. Flaquito Das MD [facility] pager [phone] 10/23/17 09:48 Subjective: 67 M with h/o Dm2, HTN, CAD s/p prior stent, AAA, pericarditis, tobacco abuse presents with chest pain. Troponins mildly elevated. Cardiology has asked me to see him as planning cath tomorrow. He has CKD4 and is followed by Dr. Holcomb of our group. Had LUE AVF placed in late May (Dr. Masterson) requiring subsequent revision due to collaterals. Has not been used yet. Denies n/v, difficulty voiding. No LE edema. Had episode of chest pain last night that scared him- no EKG changes. We discussed contrast risk in detail and agrees to proceed. Son present as well for discussion. Moved here from [place] last year as daughter here ( ). No family history of kidney disease. Still smoking. Objective: Vital Signs Temp Pulse Resp BP Pulse Ox 36.8 C 78 18 143/76 H 93 10/23/17 07:10 10/23/17 07:10 10/23/17 07:10 10/23/17 07:10 10/23/17 07:10 Laboratory Results 10/23/17 03:16 10/23/17 03:16 10/22/17 10/23/17 10/24/17 05:59 05:59 05:59 Intake Total 700 1114 Output Total 1600 1210 Balance -900 -96 Physical Exam - Physical Exam General Appearance: alert, no apparent distress EENT: other (mmm) Neck: supple Respiratory: lungs clear Cardiac/Chest: regular rate, rhythm, other (no rub) Abdomen: normal bowel sounds, non-tender, soft Skin: warm/dry Extremities: other (no edema, LUE AVF good thrill and bruit, appears mature but a bit tortuous) Neuro/Psych: alert, normal mood/affect, oriented x 3 ICD10 Worksheet Patient Problems: Problems Problem Status Onset Chest pain Acute Elevated troponin Acute
--- NOTE | 2017-10-23 10:19 | PDMN ---
Medical Necessity Medical necessity: MCG: M40 angina- recurrent chest pain, with elevated trop. , now with chills and shaking of upper extremities, pt with hx of DM2, HTN, CKD4- current Cr 2.8, , hx stent due to AAA (2013) , smoker, cardiac cath pending, status changed to INPT for further monitoring and eval of recurrent CP.
--- NOTE | 2017-10-23 14:40 | HOSPPROG ---
Hospitalist Progress Note Assessment/Plan: Subjective Follow-up on chest pain. Patient states that he had another episode of severe chest pain last evening. This was reviewed with Dr. Babak Huddleston with Cardiology and with the recurrent chest pain the plan is for catheterization tomorrow unless he becomes unstable throughout the day today. We reviewed our discussion from yesterday where the patient was complaining of having chills and shaking of his upper extremities. I did order blood cultures and a CRP which was unremarkable. Objective Vital signs as detailed below Exam General-patient appears comfortable he is awake alert conversant no acute distress sitting in chair at the bedside Heart-regular no murmurs appreciated Lungs-Clear to auscultation with normal respiratory effort Abdomen-soft nontender nondistended -no Mcclure catheter in place Extremities-no significant pitting edema or calf pain with palpation Labs as detailed below Assessment and plan Chest pain-recurrent with mildly elevated troponin values without escalation. No concerning ECG findings noted. The plan is for cardiac catheterization on October 24. Hypomagnesemia-replaced. Coronary artery disease-history of PCI or x1 stent previously he has also had stenting of his abdominal aorta secondary to abdominal aortic aneurysm. At continue current aspirin and pravastatin. Hypertension-continue with current amlodipine Lasix lisinopril and metoprolol. Chronic kidney disease stage 4-patient recently had AV fistula placed in anticipation of hemodialysis in the future. Nephrology was consulted on his case in light of the plan for IV contrast for cardiac catheterization tomorrow. Appreciate their input. Diabetes mellitus type 2-continue insulin detemir with sliding scale insulin prior to meals. I increased the intensity of sliding scale insulin today. Tobacco use-cessation advised. DVT prophylaxis-lower risk as ambulatory. Disposition-pending further cardiac evaluation. Objective: Vital Signs Temp Pulse Resp BP Pulse Ox 36.6 C 72 16 129/71 H 93 10/23/17 11:17 10/23/17 11:39 10/23/17 11:39 10/23/17 11:17 10/23/17 11:39 10/22/17 10/23/17 10/24/17 05:59 05:59 05:59 Output Total 825 Balance -825 ICD10 Worksheet Patient Problems: Problems Problem Status Onset Chest pain Acute Elevated troponin Acute
[2017-10-23] MEDS: FENOFIBRATE 48 MG TAB PO SCH (21:26)
[2017-10-24] MEDS: NS 1,000 ML IV SCH ×2 (00:16→07:18)
[2017-10-24 04:49] LABS: PLATELET COUNT 125 10^3/uL (150-400)
[2017-10-24 04:57] LABS: INR 0.94 (0.83-1.16); PROTIME(PATIENT) 12.8 SEC (12.0-15.0)
[2017-10-24] MEDS: ALBUTEROL 3 ML DEYVIAL IH SCH ×4 (05:45→22:23)
[2017-10-24] MEDS ORDERED: ASPIRIN EC 325 MG TAB PO ONE ×2 (09:02→12:53)
[2017-10-24] MEDS: INSULIN LISPRO 100 UNIT/ML SC SCH ×3 (09:02→18:08)
[2017-10-24] MEDS: ASPIRIN 81 MG CHEWABLE TAB PO SCH (09:02)
[2017-10-24] MEDS ORDERED: DIAZEPAM 5 MG TAB PO ONE (09:02)
[2017-10-24] MEDS ORDERED: diphenhydrAMINE 25 MG CAP PO ONE ×2 (09:02→12:52)
[2017-10-24] MEDS ORDERED: FAMOTIDINE 20 MG TAB PO ONE (09:02)
[2017-10-24] MEDS: NICOTINE 21 MG/24 HR PATCH TD SCH (09:03)
[2017-10-24] MEDS: METOPROLOL TARTRATE 25 MG TAB PO SCH ×2 (09:12→20:22)
[2017-10-24] MEDS: CHOLECALCIFEROL VIT D3 2,000 UNITS TAB/CAP PO SCH (09:13)
[2017-10-24] MEDS: PRAVASTATIN SODIUM 20 MG TAB PO SCH (09:13)
[2017-10-24] MEDS: PANTOPRAZOLE SODIUM 40 MG TAB PO SCH (09:14)
--- NOTE | 2017-10-24 10:08 | CPEKG ---
Test Reason : OPEN Blood Pressure : / mmHG Vent. Rate : 071 BPM Atrial Rate : 070 BPM P-R Int : 137 ms QRS Dur : 138 ms QT Int : 433 ms P-R-T Axes : 062 -47 056 degrees QTc Int : 471 ms Sinus rhythm Probable left atrial enlargement RBBB and LAFB Confirmed by Babak Huddleston ([id number]) on 10/24/2017 10:08:08 AM Referred By: Confirmed By:Babak Huddleston
--- NOTE | 2017-10-24 12:05 | SOAPPROG ---
SOAP Progress Note Assessment/Plan: Assessment: 1. crf: creat stable since admit, essentially at b/l. Vol status looks good, on ivf pre-cath. Would cont ivf 6hrs post cath then d/c. 2. chest pain: for cath today. Pt aware of risk/benefit re: renal disease. 3. htn: cont meds but hold acei/arb today. Plan: 10/24/17 12:03 Subjective: For cath shortly. Denies cp/sob. Objective: Vital Signs Temp Pulse Resp BP Pulse Ox 36.4 C 73 20 139/73 H 92 10/24/17 11:21 10/24/17 11:21 10/24/17 11:21 10/24/17 11:21 10/24/17 11:21 Laboratory Results 10/24/17 03:45 10/24/17 03:45 10/23/17 10/24/17 10/25/17 05:59 05:59 05:59 Intake Total 830 Output Total 2375 600 Balance -1545 -600 PT 12.8 SEC (12.0-15.0) 10/24/17 03:45 INR 0.94 (0.83-1.16) 10/24/17 03:45 Physical Exam - Physical Exam General Appearance: no apparent distress Respiratory: decreased breath sounds Cardiac/Chest: regular rate, rhythm Abdomen: soft Extremities: pedal edema (none), other (+patent LUE avf) ICD10 Worksheet Patient Problems: Problems Problem Status Onset Chest pain Acute Elevated troponin Acute
[2017-10-24] MEDS ORDERED: FAMOTIDINE 20 MG TAB ONE (12:52)
[2017-10-24] MEDS ORDERED: DIAZEPAM 5 MG TAB ONE (12:53)
--- NOTE | 2017-10-24 13:06 | PDPROPOC ---
Sedation Plan of Care Sedation Plan of Care: vital signs stable, mental status noted, patient educated of risks, benefits, alternatives, patient can tolerate sedation ASA Classification: ASA 3 Planned drugs: fentanyl, midazolam Mallampati Score: Class 2 Mallampati Reference Image: Patient passed 3-3-2 rule?: Yes
[2017-10-24] MEDS ORDERED: MIDAZOLAM 2 MG/2 ML VIAL ONE (13:11)
[2017-10-24] MEDS ORDERED: IOPAMIDOL (ISOVUE-370) 150 ML BTL IV ONE (13:11)
[2017-10-24] MEDS ORDERED: LIDOCAINE 1% 300 MG/30 ML SDV ONE (13:11)
[2017-10-24] MEDS ORDERED: fentaNYL 100 MCG/2 ML INJ ONE ×2 (13:11→14:33)
--- NOTE | 2017-10-24 13:27 | SOAPPROG ---
TIMMY Progress Note Assessment/Plan: Assessment/Plan: 67-year-old male with known coronary and peripheral vascular disease with previous PCI of the coronary arteries and previous stent grafting of the abdominal aorta and what sounds like the right iliac system. Additionally, he has a history of constrictive pericarditis status post pericardial stripping. Ongoing risk factors include male gender, age, ongoing tobacco use, hypertension , chronic renal insufficiency and type 2 diabetes mellitus. He is admitted now with very concerning symptoms of chest discomfort which have been present now for the last 3 or 4 days intermittently. Fortunately, he has not experienced any cardiac enzyme leak and his ECG with the exception of his conduction system disease appears to be benign. His stress myocardial perfusion imaging study is , however, high risk with a large anterior area of reversible ischemia. Overall I think he is very high risk for near-term cardiovascular events. This was discussed with him at length. We also talked about the fact that he is very high risk for complications related to coronary angiography and PCI. He understands the risks and benefits. Nephrology in-hospital medicine if seen the patient. We will plan to proceed with coronary angiography to definitively define his anatomy. Further recommendations will be made pending the outcome of that angiogram. 10/24/17 13:25 Subjective: The patient was seen and examined. His chart was reviewed. His case was discussed personally with Dr. Babak Huddleston. I personally reviewed his stress myocardial perfusion imaging study done over the weekend. He has continued to experience episodes of very concerning resting chest discomfort including an episode that occurred about 30 min ago. Objective: Vital Signs Temp Pulse Resp BP Pulse Ox 36.4 C 73 20 139/73 H 92 10/24/17 11:21 10/24/17 11:21 10/24/17 11:21 10/24/17 11:21 10/24/17 11:21 Laboratory Results 10/24/17 03:45 10/24/17 03:45 10/23/17 10/24/17 10/25/17 05:59 05:59 05:59 Intake Total 830 Output Total 2375 600 Balance -1545 -600 PT 12.8 SEC (12.0-15.0) 10/24/17 03:45 INR 0.94 (0.83-1.16) 10/24/17 03:45 Physical Exam - Physical Exam General Appearance: WD/WN, no apparent distress Neck: non-tender, full range of motion Respiratory: chest non-tender, lungs clear, No crackles, No rales, No rhonchi Cardiac/Chest: regular rate, rhythm, gallop (Positive S4), No JVD, No bradycardia, No tachycardia Peripheral Pulses: 1+: femoral (R), dorsalis-pedis (R), 2+: carotid (R), carotid (L), femoral (L), dorsalis-pedis (L) Abdomen: non-tender, soft Male Genitalia: deferred Rectal: deferred ICD10 Worksheet Patient Problems: Problems Problem Status Onset Chest pain Acute Elevated troponin Acute
[2017-10-24] MEDS ORDERED: NITROGLYCERIN 1,500 MCG/15 ML VIAL MISC ONE (13:58)
[2017-10-24] MEDS ORDERED: BIVALIRUDIN 250 MG/5 ML VIAL IV ONE (13:58)
--- NOTE | 2017-10-24 14:03 | ASMTCMCOM ---
CM Note CM Note Notes: 10/24/2017 Case Management Note Discussed pt during rounds this morning. Family in room. Pt had abnormal nuc stress test. Plan for cath today. There are no therapy evals ordered at this time. Case Management d/c poc: anticipating independent with follow up as directed. Case Management to follow. Date Signed: 10/24/2017 02:02 PM Electronically Signed By:Renae Schmid RN
[2017-10-24] MEDS ORDERED: CLOPIDOGREL BISULFATE 75 MG TAB ONE (14:13)
[2017-10-24] MEDS ORDERED: hydrALAZINE 20 MG/ML VIAL ONE (14:36)
--- NOTE | 2017-10-24 15:10 | PDDXCAT ---
Diagnostic Cath Note - . 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 Distal tapering to 20%. LAD: There is a stent well visualized in the proximal LAD. Within the yocha dehe LAD there is a 90% lesion immediately proximal to this stent and extending up into the distal ostium of the left main. Immediately distal to this stent there is a tandem long tubular 90% lesion within the yocha dehe LAD. There is a subtotally occluded 1st diagonal branch with CARLTON 1 flow. LCX: Large caliber vessel proximally. Gives rise to a single obtuse marginal branch then becomes diminutive. Luminal irregularities only without obstructive lesions. RCA: Large caliber vessel. The PDA is noted as well as several small posterolateral branches. There was an 80% proximal PDA lesion in a large vessel. LVEF: Due to the patient's elevated creatinine of 2.8 at left ventriculography was not performed. The end-diastolic pressure did measure 17 mmHg. Complications: None. Estimated blood loss: <50ml Closure method: other (Per Interventional Cardiology) Assessment: 2 vessel coronary artery disease involving the proximal/ostium of the LAD and the proximal portion of the PDA. Because of the multiple comorbidities including elevated creatinine of 2.8 it was elected to proceed with PCI rather than coronary artery bypass graft surgery. This will be performed in a staged fashion with the LAD PCI being performed today and the PDA PCI being performed at a later date. Plan: As above. Intervention: Per Interventional Cardiology. Patient Problems: Problems Problem Status Onset Chest pain Acute Elevated troponin Acute
--- NOTE | 2017-10-24 15:38 | CPIP ---
DATE OF PROCEDURE: 10/24/2017 INDICATIONS FOR PROCEDURE: High-grade ostial and mid left anterior descending disease. PROCEDURE PERFORMED: 1. Nonselective left groin sheathogram. 2. Left coronary artery selective angiography. 3. Percutaneous coronary intervention of mid and ostial LAD utilizing a 3.0 x 20 Synergy stent and 3 .0 x 12 mm Synergy stent. Briefly, this is a 67-year-old male with history of prior pericardiotomy and PCI of his proximal LAD. Patient had unstable angina-like symptoms and a positive stress test with anterior ischemia. Given these findings, the patient underwent cardiac catheterization by Dr. Kale Melo. Please refer to Dr. Melo's full delineation of underlying coronary anatomy. Briefly, the patient was found to have hig h-grade ostial and prox LAD stenosis before and after his previously placed stent. Also, the patient was found to have high-grade RPDA disease. Given the patient's anterior ischemia as well as ongoing chest pain, the LAD was thought to be the culprit for the patient's current presentation. Utilizing the same 6-Armenian sheath, the left common femoral artery was verified angiographically. We decided to proceed with PCI. The patient was administered Plavix p.o. and was started on Angiomax bolus and drip. Utilizing an EBU 3.5 guide catheter was then advanced to the left coronary artery. Images of the left coronary artery revealed once again the high-grade ostial and prox LAD lesions be fore and after the previously placed stent. A Choice PT wire was placed down the LAD. Predilatation commenced with a 3.0 x 12 mm balloon at the ostial and proximal area. 12 atmospheres occ urred and areas. After this was performed, the balloon was removed. Angiography was obta ined which showed improved patency of this area proceed with stenting the distal lesion 1s t with a 3.0 x 20 mm Synergy drug-eluting stent. This was deployed at 14 atmospheres. At this time we then proceeded with stenting of the ostium of the ostial left LAD with a 3.0 x 12 Synergy __ deployed at 14 atmospheres. After deployment angiogram obtained which showed excellent patency of the stented regions with no evidence of dissection or perforation. There was intact flow into the c ircumflex artery with no other evidence of impingement in this vessel. At this time, the wire was re moved. The guide catheter was removed. The FiberWire over the left groin was closed with a 6-Armenian . The patient tolerated the procedure well with no complications. IMPRESSION: 1. Successful percutaneous intervention of high-grade ostial and proximal LAD with 2 Synergy drug-el uting stents. 2. High-grade RPDA lesion to be addressed in a staged fashion given the patient's underlying renal i nsufficiency. PLAN: The patient will be admitted back to the medical floor. Further orders following c linical course and the patient's underlying renal function. If the patient's renal function stabiliz es, we will plan on PCI of the RPDA within the next 1-2 days. /[id number]/MODL
--- NOTE | 2017-10-24 19:55 | HOSPPROG ---
Hospitalist Progress Note Assessment/Plan: * Unstable angina s/p stent LAD -needs staged procedure with stent PDA 2-3 days if renal function stable * CKD -continue hydration post IV contrast -follow renal function for 72 hours -has mature AV fistula in place if HD needed * DM -Lantus * Tobacco dependence -advise cessation * HTN -holding lisinopril while we watch renal function * AAA s/p abdominal stents * Hyperlipidemia -change pravachol to lipitor for improved control - LDL 108 Subjective: Recurrent episode of CP today Objective: Vital Signs Temp Pulse Resp BP Pulse Ox 36.5 C 85 14 162/94 H 95 10/24/17 18:37 10/24/17 18:37 10/24/17 18:37 10/24/17 18:37 10/24/17 18:37 Laboratory Results 10/24/17 03:45 10/24/17 03:45 10/23/17 10/24/17 10/25/17 05:59 05:59 05:59 Intake Total 830 920 Output Total 2375 800 Balance -1545 120 PT 12.8 SEC (12.0-15.0) 10/24/17 03:45 INR 0.94 (0.83-1.16) 10/24/17 03:45 d/w DR. Mccartney regarding plan for CKD Nuc med stress test - positive for anterior ischemia tele reviewed - NSR - Physical Exam Constitutional: no apparent distress, appears nourished, not in pain Cardiovascular: regular rate and rhythym, no murmur, rub, or gallop Respiratory: no respiratory distress, no rales or rhonchi, clear to auscultation Gastrointestinal: normoactive bowel sounds, soft, non-tender abdomen, no palpable masses Skin: no rashes or abrasions, no fluctuance, no induration Neurologic: AAOx3, sensation intact bilaterally Psychiatric: interacting appropriately, not anxious, not encephalopathic, thought process linear ICD10 Worksheet Patient Problems: Problems Problem Status Onset Chest pain Acute Elevated troponin Acute
[2017-10-24] MEDS: FENOFIBRATE 48 MG TAB PO SCH (20:22)
[2017-10-25 05:17] LABS: PLATELET COUNT 144 10^3/uL (150-400)
[2017-10-25] MEDS: ALBUTEROL 3 ML DEYVIAL IH SCH ×2 (05:21→11:13)
[2017-10-25 07:38] VITALS: BP 138/68
[2017-10-25] MEDS: INSULIN LISPRO 100 UNIT/ML SC SCH (08:14)
[2017-10-25] MEDS: PANTOPRAZOLE SODIUM 40 MG TAB PO SCH (08:40)
[2017-10-25] MEDS: METOPROLOL TARTRATE 25 MG TAB PO SCH (08:40)
--- NOTE | 2017-10-25 08:40 | CPEKG ---
Test Reason : OPEN Blood Pressure : / mmHG Vent. Rate : 079 BPM Atrial Rate : 079 BPM P-R Int : 148 ms QRS Dur : 139 ms QT Int : 435 ms P-R-T Axes : 067 -58 061 degrees QTc Int : 499 ms Sinus rhythm RBBB and LAFB Confirmed by Babak Huddleston ([id number]) on 10/25/2017 8:40:08 AM Referred By: Confirmed By:Babak Huddleston
[2017-10-25] MEDS: CHOLECALCIFEROL VIT D3 2,000 UNITS TAB/CAP PO SCH (08:41)
[2017-10-25] MEDS: NICOTINE 21 MG/24 HR PATCH TD SCH (08:45)
[2017-10-25] MEDS ORDERED: ASPIRIN EC 325 MG TAB PO SCH (09:00)
[2017-10-25] MEDS ORDERED: CLOPIDOGREL BISULFATE 75 MG TAB PO SCH (09:00)
[2017-10-25] MEDS ORDERED: ASPIRIN EC 81 MG TAB PO SCH (09:00)
[2017-10-25] MEDS ORDERED: ATORVASTATIN CALCIUM 40 MG TAB PO SCH ×2 (09:00)
--- NOTE | 2017-10-25 09:21 | SOAPPROG ---
SOAP Progress Note Assessment/Plan: Assessment/Plan: 67 y/o M with CKD Stage IV who presented with CP now s/p cardiac catheterization requiring PCI staged procedure. CKD IV -baseline egFR 23ml/min -Cr down to 2.5 today s/p fluids with cath yesterday down from 2.8 -continue to monitor, would hold fluids and lasix for now -monitor UO -has AVF in place -avoid NSAIDs, keep MAP>65 HTN/vol: -BP well controlled today -as above -continue CCB and BB -hold SKYLA/ARB until after 2nd procedure CAD requiring PCI to LAD and PDA -planning for later this week -will need to assess volume and consider gentle fluids again with the procedure Will continue to follow, please contact if ?'s. #[phone]. 10/25/17 09:25 Subjective: Patient still making good UO. Aware of risks of procedures. Objective: Vital Signs Temp Pulse Resp BP Pulse Ox 36.6 C 86 18 138/68 H 97 10/25/17 07:37 10/25/17 07:37 10/25/17 07:37 10/25/17 07:37 10/25/17 07:37 Laboratory Results 10/25/17 03:55 10/25/17 03:55 10/24/17 10/25/17 10/26/17 05:59 05:59 05:59 Intake Total 830 1470 Output Total 2375 1350 Balance -1545 120 PT 12.8 SEC (12.0-15.0) 10/24/17 03:45 INR 0.94 (0.83-1.16) 10/24/17 03:45 Physical Exam - Physical Exam General Appearance: WD/WN, alert, no apparent distress EENT: PERRL/EOMI Neck: non-tender, full range of motion, supple Respiratory: chest non-tender, lungs clear, normal breath sounds Cardiac/Chest: normal peripheral pulses, regular rate, rhythm Abdomen: normal bowel sounds, non-tender, soft Skin: normal color, warm/dry Extremities: normal range of motion, non-tender Neuro/Psych: no motor/sensory deficits, alert, normal mood/affect ICD10 Worksheet Patient Problems: Problems Problem Status Onset Chest pain Acute Elevated troponin Acute
--- NOTE | 2017-10-25 09:38 | SOAPPROG ---
TIMMY Progress Note Assessment/Plan: Assessment/Plan: 67-year-old male with known coronary and peripheral vascular disease with previous PCI of the coronary arteries and previous stent grafting of the abdominal aorta and what sounds like the right iliac system. Additionally, he has a history of constrictive pericarditis status post pericardial stripping. Ongoing risk factors include male gender, age, ongoing tobacco use, hypertension , chronic renal insufficiency and type 2 diabetes mellitus. He is status post PCI and stenting proper portion of the LAD. He is on DAPT. I have increase his Atorvastatin. At this point he can be discharged. I will plan on [facility] to check his renal function . I would like him to see me in the office next week. Will plan for statged PCI of PDA in the next several weeks. Subjective: He is doing well today. He states he feels much better following his LAD PCI. He has not experienced any further chest pain Objective: Vital Signs Temp Pulse Resp BP Pulse Ox 36.6 C 86 18 138/68 H 97 10/25/17 07:37 10/25/17 07:37 10/25/17 07:37 10/25/17 07:37 10/25/17 07:37 Laboratory Results 10/25/17 03:55 10/25/17 03:55 10/24/17 10/25/17 10/26/17 05:59 05:59 05:59 Intake Total 830 1470 Output Total 2375 1350 Balance -1545 120 PT 12.8 SEC (12.0-15.0) 10/24/17 03:45 INR 0.94 (0.83-1.16) 10/24/17 03:45 Physical Exam - Physical Exam General Appearance: WD/WN, no apparent distress Neck: non-tender, full range of motion Respiratory: lungs clear Cardiac/Chest: regular rate, rhythm, other (2+ left DP, mild ecchymosis at the groin site), No gallop, No JVD Peripheral Pulses: 2+: carotid (R), carotid (L) ICD10 Worksheet Patient Problems: Problems Problem Status Onset Chest pain Acute Elevated troponin Acute
--- NOTE | 2017-10-25 10:34 | ASDISCHSUM ---
Discharge Information Plan Status:Home with No Needs Medically Cleared to Leave:10/25/2017 Discharge Date:10/25/2017 CM D/C Disposition:Home, Routine, Self-Care ADT D/C Disposition:Home, Routine, Self-Care Projected Discharge Date:10/25/2017 Transportation at D/C: Discharge Delay Reason: Follow-Up Date:10/25/2017 Discharge Slot: Final Diagnosis: Placement Information Patient Contact Information Contact Name:LILLIAM Relationship:Yuri Address: Work Phone: City: [facility] Phone: State/[employer] Code: Email: Financial Information Financial Class:Medicare Advantage Plans Primary Plan Desc:[employer] MEDICARE ADV Primary Plan Number:[id number] Secondary Plan Desc: Secondary Plan Number: Assessment Information [facility] CM Progress Note CM Note CM Note Notes: Pt in for chest discomfort, diabetes, elevated troponin. Pt with numerous comorbidiities including CKD anticipating dialysis Pt has family bedside. No therapies ordered. D/c plan of care: TBD Date Signed: 10/22/2017 04:52 PM Electronically Signed By:CHAIM Andres LACE LACE Length of stay for Answers: 2 days current admission Acuity / Level of Answers: Yes Care: Did the patient have an inpatient admission? Comorbidities - select Answers: Coronary Artery Disease all that apply Diabetes (uncontrolled or controlled) Mild liver or renal disease Other Notes: HTN # of Emergency department Answers: 1-2 visits in the last 6 months Score: 12 Date Signed: 10/25/2017 10:31 AM Electronically Signed By:Renae Schmid RN [facility] CM Progress Note CM Note CM Note Notes: 10/24/2017 Case Management Note Discussed pt during rounds this morning. Family in room. Pt had abnormal nuc stress test. Plan for cath today. There are no therapy evals ordered at this time. Case Management d/c poc: anticipating independent with follow up as directed. Case Management to follow. Date Signed: 10/24/2017 02:02 PM Electronically Signed By:Renae Schmid RN Case Management Discharge Plan Note Case Management Discharge Discharge Order Complete? Answers: Yes Patient to Obtain Answers: Independently Medications Transportation Arranged Answers: Family/Friends Discharge Comments Notes: 10/25/2017 Case Management Note Pt to discharge independent with follow up as directed. Date Signed: 10/25/2017 10:33 AM Electronically Signed By:Renae Schmid RN Intervention Information
--- NOTE | 2017-10-25 19:01 | GDS ---
DISCHARGE DIAGNOSES: 1. Unstable angina, status post stent to the LAD. 2. Posterior descending artery stenosis, needs a staged procedure. 3. Chronic kidney disease. Baseline creatinine 2.5. 4. Diabetes. 5. Tobacco dependence. 6. Hypertension. 7. Peripheral vascular disease, status post abdominal aorta and lower extremity stents. 8. History of constrictive pericarditis, status post pericardial stripping. 9. Hyperlipidemia. HISTORY: The patient is a 67-year-old male who presented with chest pain. He continued to have inte rmittent episodes of chest pain throughout his hospitalization. Stress testing was positive for ante rior ischemia. Cardiac catheterization was higher risk given his baseline creatinine of 2.5. He alr harlan has an AV fistula in place in anticipation of future dialysis. Nephrology was consulted. We he ld his Lasix and lisinopril and hydrated him prior to cardiac catheterization. He got a stent to his LAD, and his creatinine looks good today at his baseline 2.5. Immediately post procedure, he feels great, with complete resolution of these chest pains he had been suffering from recently. Also noted on cardiac catheterization was a right posterior descending artery. It was also tightly stenosed an d also needs a procedure. Plan is for Cardiology to bring him back in 1-2 weeks to put a stent in the [facility] at that time. They will need to repeat the protocol with Nephrology regarding pre-procedur e hydration. Plan is to continue to hold lisinopril and Lasix until after this procedure is performe d. He needs renal function recheck 72 hours post cardiac catheterization. This will be done by Dr. Melo on . Incidentally noted was poorly controlled hyperlipidemia with an LDL of 108. He w as only on Pravachol. We have increased him to Lipitor 80 mg p.o. daily. DISCHARGE MEDICATIONS: Please see computerized record for full detailed list. New medications: 1. Lipitor 80 mg p.o. daily. 2. Plavix 75 mg p.o. daily. Discontinued medications: 1. Lovastatin 20 mg p.o. daily. 2. Lisinopril 40 mg p.o. daily. 3. Lasix 20 mg p.o. b.i.d. ADDITIONAL DISCHARGE INSTRUCTIONS: 1. Follow up repeat creatinine in [address] Melo. 2. Follow up at [facility] for scheduling of posterior descending artery stent to be performed el ectively in 1-2 weeks. 3. Patient will need preprocedure hydration for this procedure. 4. Greater than 30 minutes' time was spent arranging this discharge. Patient seen and examined by me on the day of discharge. /[id number]/MODL
--- NOTE | 2017-10-27 08:35 | CPEKG ---
Test Reason : c/o cp Blood Pressure : / mmHG Vent. Rate : 097 BPM Atrial Rate : 097 BPM P-R Int : 135 ms QRS Dur : 139 ms QT Int : 397 ms P-R-T Axes : 069 -65 058 degrees QTc Int : 505 ms Sinus rhythm Probable left atrial enlargement RBBB and LAFB Confirmed by Babak Huddleston ([id number]) on 10/27/2017 8:35:16 AM Referred By: Confirmed By:Babak Huddleston
--- NOTE | 2017-10-27 08:37 | CPEKG ---
Test Reason : OPEN Blood Pressure : / mmHG Vent. Rate : 087 BPM Atrial Rate : 088 BPM P-R Int : 140 ms QRS Dur : 137 ms QT Int : 418 ms P-R-T Axes : 068 269 064 degrees QTc Int : 503 ms Sinus rhythm RBBB and LAFB Confirmed by Babak Huddleston ([id number]) on 10/27/2017 8:37:00 AM Referred By: Confirmed By:Babak Huddleston
== END 2017-10-25 11:37 | disposition home or self-care (01) | DRG 247 ==
LOC: INTOOBSV 16:13 → F2W 17:05 → OBSVTOIN 10-23 09:53
PROVIDERS: ADMIT Family Medicine; ATTEND Internal Medicine
PROC: 027035Z Dilation of Coronary Artery, One Artery with Two Drug-eluting Intraluminal Devices, Percutaneous Approach (ICD-10-PCS; principal; 2017-10-24)
PROC: B2111ZZ Fluoroscopy of Multiple Coronary Arteries using Low Osmolar Contrast (ICD-10-PCS; 2017-10-24)
PROC: 4A023N7 Measurement of Cardiac Sampling and Pressure, Left Heart, Percutaneous Approach (ICD-10-PCS; 2017-10-24)
DX: I25.110 Atherosclerotic heart disease of native coronary artery with unstable angina pectoris (principal); E11.22 Type 2 diabetes mellitus with diabetic chronic kidney disease; N18.4 Chronic kidney disease, stage 4 (severe); F17.200 Nicotine dependence, unspecified, uncomplicated; I12.9 Hypertensive chronic kidney disease with stage 1 through stage 4 chronic kidney disease, or unspecified chronic kidney disease; E83.42 Hypomagnesemia; D63.1 Anemia in chronic kidney disease; I73.9 Peripheral vascular disease, unspecified; E78.5 Hyperlipidemia, unspecified; Z95.5 Presence of coronary angioplasty implant and graft; Z79.4 Long term (current) use of insulin; Z95.828 Presence of other vascular implants and grafts
CPT/HCPCS: 84484-PO; A9500; C1725; C1760; C1769; C1874; C1887; C9600; G0378; J0360; J0583; J1644; J1815; J2250; J2270; J2785; J3010; J3475; J7613; Q9967

== ENCOUNTER 2017-11-22 06:01 | Observation (INO) | payer OTHER ==
[2017-11-22] MEDS ORDERED: ASPIRIN EC 325 MG TAB PO ONE (06:16)
[2017-11-22] MEDS ORDERED: DIAZEPAM 5 MG TAB PO ONE (06:16)
[2017-11-22] MEDS ORDERED: FAMOTIDINE 20 MG TAB PO ONE (06:16)
[2017-11-22] MEDS ORDERED: diphenhydrAMINE 25 MG CAP PO ONE (06:16)
[2017-11-22] MEDS ORDERED: NS 1,000 ML IV ONE (06:16)
[2017-11-22 06:52] LABS: PLATELET COUNT 147 10^3/uL (150-400)
--- NOTE | 2017-11-22 07:25 | PDPROPOC ---
Sedation Plan of Care Sedation Plan of Care: mental status noted, patient educated of risks, benefits , alternatives ASA Classification: ASA 2 Planned drugs: fentanyl, midazolam Mallampati Score: Class 2 Mallampati Reference Image: Patient passed 3-3-2 rule?: Yes
[2017-11-22 07:29] LABS: INR 0.94 (0.83-1.16); PROTIME(PATIENT) 12.8 SEC (12.0-15.0)
[2017-11-22] MEDS ORDERED: CLOPIDOGREL BISULFATE 75 MG TAB PO ONE (07:30)
[2017-11-22] MEDS ORDERED: IOPAMIDOL (ISOVUE-370) 150 ML BTL IV ONE ×2 (08:45→10:31)
[2017-11-22] MEDS ORDERED: LIDOCAINE 1% 300 MG/30 ML SDV ONE (08:45)
[2017-11-22] MEDS ORDERED: MIDAZOLAM 2 MG/2 ML VIAL ONE (08:45)
[2017-11-22] MEDS ORDERED: fentaNYL 100 MCG/2 ML INJ ONE (08:45)
[2017-11-22] MEDS ORDERED: BIVALIRUDIN 250 MG/5 ML VIAL IV ONE ×2 (08:46→11:22)
[2017-11-22] MEDS ORDERED: NITROGLYCERIN 1,500 MCG/15 ML VIAL MISC ONE (08:47)
[2017-11-22] MEDS ORDERED: MAGNESIUM SULF 2 GM/WATER 50 ML IV ONE (09:00)
[2017-11-22] MEDS ORDERED: BUPIVACAINE 0.5% 30 ML SDV ONE (11:39)
[2017-11-22] MEDS ORDERED: ONDANSETRON 4 MG/2 ML VIAL IVP PRN (11:55)
[2017-11-22] MEDS ORDERED: OXYCODONE/APAP 5/325 TAB PO PRN (11:55)
[2017-11-22] MEDS ORDERED: TEMAZEPAM 15 MG CAP PO PRN (11:55)
[2017-11-22] MEDS ORDERED: HYDROCODONE/APAP 5/325 TAB PO PRN (11:55)
[2017-11-22] MEDS ORDERED: NITROGLYCERIN 0.4 MG BTL SL PRN (11:55)
[2017-11-22] MEDS ORDERED: ATROPINE SULFATE 1 MG/10 ML SYR IVP PRN (11:55)
[2017-11-22] MEDS ORDERED: LORazepam 2 MG/ML INJ IVP PRN (11:55)
--- NOTE | 2017-11-22 12:12 | CPIP ---
DATE OF PROCEDURE: 11/22/2017 REASON FOR PROCEDURE: Coronary artery disease. PROCEDURE: 1. Nonselective right groin sheathogram. 2. Left coronary artery angiography. 3. Right coronary artery angiography. 4. Percutaneous intervention of RPDA utilizing Synergy 2.5 x 20 mm drug-eluting stent. INDICATIONS: Briefly, this is a 67-year-old male with history of significant coronary artery disease . Patient underwent PCI approximately 1 month ago for high-grade LAD disease. The patient returns t [facility] for staged PCI of his PDA. DESCRIPTION OF PROCEDURE: After informed consent, the patient was brought to [facility], where the right gr oin was prepped and draped in normal sterile fashion without lidocaine. A short 6-Monegasque sheath in t he right common femoral artery. The patient does have a AAA endograft. We decided to upsize the she ath to a 45 cm sheath after we placed an angled stiff Glidewire with a JR4 catheter, switched out for an Amplatz superstiff wire. At this time, the patient was on Angiomax bolus drip and administered _ Plavix p.o. An AL1 guide catheter with side holes was then advanced to the right coronary artery. Images of the right coronary artery revealed normal ostial RCA. The prox RCA had 20% to 30% disease. Distal RCA was healthy and robust. The RPLS was a small vessel. The RPDA had a focal are a of 80% to 90%. Distally, this vessel appeared to be healthy and free of disease. At this time, a Fielder wire was advanced and placed across the RPDA into the distal vessel. Predilatation commenced initially with a 1.5 x 12 balloon followed by a 2.5 x 20 balloon at 10-12 atmospheres. After being performed, the balloon was removed. Angiogram was obtained, which showed improved patency of this ar ea with mild dissection plane. We decided to proceed with stenting of this vessel. However, initial ly a Synergy 2.5 x 20 stent would not traverse this wire. We decided to place a twin pass catheter a nd switched it out for a Mailman wire, which was done successfully and we then delivered the stent gallegos ccessfully and deployed it at 14 atmospheres. After deployment, angiographic images were obtained, [facility] showed excellent patency of the stented area with no evidence of dissection or perforation. The wire was pulled back. The guide catheter was then removed over the 0.035 wire. The 45 cm sheath wa s replaced with a 7-Monegasque sheath. The patient tolerated the procedure well with no complications. IMPRESSION: Successful PCI of high-grade RPA disease utilizing Synergy 2.5 x 20 mm balloon stent. PLAN: The patient will have 3 hours bed rest. The sheath with be discontinued 2 hours after the Ang iomax runs out. If clinically stable, discharged in 24 hours. /[id number]/MODL
--- NOTE | 2017-11-22 16:40 | CPEKG ---
Test Reason : OPEN Blood Pressure : / mmHG Vent. Rate : 068 BPM Atrial Rate : 068 BPM P-R Int : 139 ms QRS Dur : 142 ms QT Int : 432 ms P-R-T Axes : 063 -53 053 degrees QTc Int : 460 ms Sinus rhythm Probable left atrial enlargement RBBB and LAFB Confirmed by Suleman Goff ([id number]) on 11/22/2017 4:40:27 PM Referred By: Confirmed By:Suleman Goff
--- NOTE | 2017-11-22 16:44 | CPEKG ---
Test Reason : OPEN Blood Pressure : / mmHG Vent. Rate : 066 BPM Atrial Rate : 066 BPM P-R Int : 154 ms QRS Dur : 149 ms QT Int : 468 ms P-R-T Axes : 060 -51 050 degrees QTc Int : 491 ms Sinus rhythm RBBB and LAFB Confirmed by Suleman Goff ([id number]) on 11/22/2017 4:43:39 PM Referred By: Confirmed By:Suleman Goff
[2017-11-22] MEDS: Insulin Aspart [Novolog] SQ SCH (17:06)
[2017-11-22] MEDS: METOPROLOL TARTRATE 25 MG TAB PO SCH (20:14)
[2017-11-22] MEDS: glipiZIDE 10 MG TAB PO SCH (20:14)
[2017-11-23 04:13] LABS: PLATELET COUNT 138 10^3/uL (150-400)
--- NOTE | 2017-11-23 06:54 | PDCARPN ---
Cardiology Progress Note Chief Complaint: CAD Assessment/Plan: Assessment: s/p staged PCI to RCA Plan: 11/23/17 06:53 DOing well d/c home plavix/ASA f/u next week Subjective: doing well Reviewed/Discussed With: multidisciplinary team Time Spent with Patient: greater than 25 minutes Time Spent with Patient: Greater than 25 minutes spent on this patients care, greater than 50% of time spent counseling, educating, and coordinating care regarding the above mentioned plan. Objective: Vital Signs (8 Hrs) Temp Pulse Resp BP Pulse Ox 11/23/17 04:00 36.4 C 83 16 146/85 H 94 Intake/Output (24 Hrs) 11/22/17 11/23/17 11/24/17 05:59 05:59 05:59 Intake Total 2100 Output Total 1450 Balance 650 Intake: Oral (ml) 750 IV Intake (ml) 1350 Output: Urine (ml) 1450 Urinal 1450 Other: Weight 87.09 kg Number of Voids Urinal 2 Result Diagrams: 11/23/17 03:34 11/23/17 03:34 - Physical Exam Constitutional: healthy appearing Eyes: PERRL Ears, Nose, Mouth, Throat: moist mucous membranes Cardiovascular: regular rate and rhythm Peripheral Pulses: 1+: femoral (R), femoral (L) Respiratory: clear to auscultate bilat Gastrointestinal: normoactive bowel sounds Genitourinary: no suprapubic tenderness Skin: no rashes Musculoskeletal: no muscular tenderness Neurologic: AAOx3 Psychiatric: cooperative ICD10 Worksheet Patient Problems: Problems Problem Status Onset Elevated troponin Acute
--- NOTE | 2017-11-23 07:17 | GDS ---
DISCHARGE DIAGNOSIS: Coronary artery disease. HOSPITAL COURSE: Briefly, this is a 67-year-old male with a known history of coronary artery disease . Patient underwent a staged PCI approximately 1 month ago for his high-grade LAD disease. He retur ns on 11/22/2017, for a stage 2 PCI of his RPDA. The patient underwent successful drug-eluting stent placement to his RPDA on 11/22/2017. Currently, the patient indicates feeling well. No chest pain. Blood pressure and heart rate are stable. Laboratory values are within the patient's normal limits . The patient has a history of chronic renal insufficiency and had a baseline creatinine of 2.5. Ne s creatinine today is 2.2. He will be discharged home today with his home medications. He will foll ow up in the office in 1 week's time. /[id number]/MODL
[2017-11-23] MEDS: Insulin Aspart [Novolog] SQ SCH (07:26)
[2017-11-23 07:30] VITALS: BP 157/97
[2017-11-23] MEDS: METOPROLOL TARTRATE 25 MG TAB PO SCH (07:54)
[2017-11-23] MEDS: glipiZIDE 10 MG TAB PO SCH (07:54)
--- NOTE | 2017-11-23 08:45 | ASMTLACE ---
LACE Length of stay for Answers: 2 days current admission Acuity / Level of Answers: No Care: Did the patient have an inpatient admission? Comorbidities - select Answers: Coronary Artery Disease all that apply Diabetes (uncontrolled or controlled) Moderate or severe liver or renal disease Opioid dependence / Chronic pain Other Notes: HTN # of Emergency department Answers: 1-2 visits in the last 6 months Score: 15 Date Signed: 11/23/2017 08:44 AM Electronically Signed By:Marietta Ludwig
[2017-11-23] MEDS ORDERED: ATORVASTATIN CALCIUM 40 MG TAB PO SCH (09:00)
[2017-11-23] MEDS ORDERED: ASPIRIN 81 MG CHEWABLE TAB PO SCH (09:00)
[2017-11-23] MEDS ORDERED: CHOLECALCIFEROL VIT D3 2,000 UNITS TAB/CAP PO SCH (09:00)
[2017-11-23] MEDS ORDERED: CLOPIDOGREL BISULFATE 75 MG TAB PO SCH (09:00)
[2017-11-23] MEDS ORDERED: PANTOPRAZOLE SODIUM 40 MG TAB PO SCH (09:00)
--- NOTE | 2017-11-23 12:35 | ASDISCHSUM ---
Discharge Information Plan Status:Home with No Needs Medically Cleared to Leave:11/23/2017 Discharge Date:11/23/2017 08:45 AM CM D/C Disposition:Home, Routine, Self-Care ADT D/C Disposition:Home, Routine, Self-Care Projected Discharge Date:11/23/2017 08:45 AM Transportation at D/C:Self Discharge Delay Reason: Follow-Up Date:11/23/2017 08:45 AM Discharge Slot: Final Diagnosis: Placement Information Patient Contact Information Contact Name:LILLIAM Relationship:Yuri Address: Work Phone: City: [facility] Phone: State/[place] Code: Email: Financial Information Financial Class:Medicare Advantage Plans Primary Plan Desc:LEILANI MEDICARE ADV Primary Plan Number:[id number] Secondary Plan Desc: Secondary Plan Number: Assessment Information LACE LACE Length of stay for Answers: 2 days current admission Acuity / Level of Answers: No Care: Did the patient have an inpatient admission? Comorbidities - select Answers: Coronary Artery Disease all that apply Diabetes (uncontrolled or controlled) Moderate or severe liver or renal disease Opioid dependence / Chronic pain Other Notes: HTN # of Emergency department Answers: 1-2 visits in the last 6 months Score: 15 Date Signed: 11/23/2017 08:44 AM Electronically Signed By:Marietta Ludwig Intervention Information
== END 2017-11-23 08:45 | disposition home or self-care (01) ==
LOC: FCATH 06:01 → F2W 11:55
PROVIDERS: ADMIT Internal Medicine Cardiovascular Disease; ATTEND Internal Medicine Cardiovascular Disease
PROC: 027034Z Dilation of Coronary Artery, One Artery with Drug-eluting Intraluminal Device, Percutaneous Approach (ICD-10-PCS; principal; 2017-11-22)
DX: I25.10 Atherosclerotic heart disease of native coronary artery without angina pectoris (principal); I10 Essential (primary) hypertension; I77.0 Arteriovenous fistula, acquired; E11.51 Type 2 diabetes mellitus with diabetic peripheral angiopathy without gangrene; I73.9 Peripheral vascular disease, unspecified; Z79.4 Long term (current) use of insulin; Z95.5 Presence of coronary angioplasty implant and graft
CPT/HCPCS: 92928; 93005; C1725; C1769; C1874; C1887; C9600; G0378; J0583; J1644; J2250; J3010; J3475; Q9967

== ENCOUNTER → 2018-04-21 | Outpatient (CLI) | payer OTHER | LOC: CIMAGING 08:50 | PROVIDERS: ATTEND Family Medicine | DX: R06.02 Shortness of breath (principal); I51.7 Cardiomegaly; I25.10 Atherosclerotic heart disease of native coronary artery without angina pectoris; Z95.5 Presence of coronary angioplasty implant and graft | CPT/HCPCS: 71046-PO ==